=== PATIENT | male | born 1980 | race Caucasian/White ===

== ENCOUNTER 2023-07-11 11:18 | Emergency (ER) | payer BC, SELFPAY ==
[2023-07-11 12:05] VITALS: BP 132/81; PULSE 121; RESP 20; TEMP 36; O2SAT 96; BMI 31.5
--- NOTE | 2023-07-11 12:07 | ED_ITS ---
HPI - General Adult General Chief complaint: Upper Respiratory Symptoms Stated complaint: sore throat Time Seen by Provider: 07/11/23 12:07 Source: patient, RN notes reviewed and old records reviewed Mode of arrival: ambulatory Limitations: no limitations History of Present Illness HPI narrative: 43-year-old male presents for evaluation of a sore throat. Patient reports that he had flu-like symptoms about a week ago with fever and body aches he reports that that has improved, however over the last 4 days he has had a worsening sore throat and feels as though his tonsils are swollen he reports that it is painful to swallow and he but he is able to do so he also endorses a dry cough Related Data Previous Rx's Medication Instructions Recorded amoxicillin 875 mg-potassium 1 tab PO BID #14 tabs 07/11/23 clavulanate 125 mg tablet Allergies Allergy/AdvReac Type Severity Reaction Status Date / Time No Known Allergies Allergy Unverified 03/29/20 14:52 Review of Systems Constitutional: Constitutional: Denies chills and Denies fever(s) ENT: Reports sore throat Cardiovascular: Cardiovascular: Denies dyspnea Respiratory: Respiratory: Reports cough and Denies dyspnea Gastrointestinal: Gastrointestinal: Denies abdominal pain, Denies nausea and Denies vomiting Musculoskeletal: Musculoskeletal: Denies back pain Integumentary/Breasts: Skin/Breast: Denies rash PMFSH Social History Social History Unable to assess alcohol history related to: Unable to respond Physical Exam ED Vital Signs: Vital Signs - 24 hr 07/11/23 12:05 Temperature 96.8 F Pulse Rate 121 H Respiratory Rate 20 Blood Pressure 132/81 Pulse Oximetry 96 Oxygen Delivery Method Room Air BMI result Body Mass Index 31.5 Const General: healthy appearing, comfortable, no acute distress, alert and awake Nutritional Appearance: well nourished Orientation/consciousness: patient oriented x3 HENMT Other: erythematous oropharynx with bilateral tonsillar hypertrophy and exudates. No evidence of peritonsillar abscess Head: Yes normocephalic and Yes atraumatic Eyes Eyelids: Yes eyelids normal Conjunctivae: conjunctivae normal Sclerae: sclerae normal Corneas: corneas normal Pupils: Equal, round and reactive pupils present EOM: EOMs intact bilaterally Resp Effort & Inspection: normal respiratory effort, able to speak in complete sente nces, no audible wheezes and not labored Auscultation: clear to auscultation bilaterally GI Inspection: No distended Palpation (GI): Soft to palpation, not firm, nontender, no guarding and not rigid Skin General skin exam: elasticity normal Neuro General: patient oriented x3 Cranial nerves: Yes Equal, round and reactive pupils present and Yes Bilaterally intact EOM present Cognition (Neuro): normal cognition Extrem Other: Moving all extremities well without any obvious deformities Medical Decision Making Medical Decision Making MDM Narrative: 43-year-old male presents for evaluation of sore throat after having flu-like symptoms for a few days. Discussed with the patient and offered viral testing and strep testing the patient elected to be is treated empirically for exudative pharyngitis. Will treat with Augmentin. Differential Diagnosis Differential Diagnoses: The differential diagnosis associated with the presenta tion includes Upper respiratory infection Pharyngitis Strep pharyngitis Influenza COVID-19 Tests considered The following testing was considered but not selected: influenza swab, strep throat screening Discharge Plan Discharge Clinical Impression: Exudative pharyngitis Patient Disposition: Home, Self-Care Instructions: Pharyngitis (ED) Additional Instructions: Take the antibiotic twice daily for 7 days. you may use ibuprofen or Tylenol for pain you may also use saltwater gargles or [id number] throat sprays you should get a new toothbrush after you take the last dose of antibiotic follow-up with your primary doctor or return for new or worsening symptoms Prescriptions: New amoxicillin-pot clavulanate 875-125 mg tablet 1 tab PO BID Qty: 14 0RF
== END 2023-07-11 12:25 | disposition home or self-care (01) ==
LOC: HO.ED 12:13
PROVIDERS: Emergency Provider Emergency Medicine; PCP Internal Medicine
DX: J02.9 Acute pharyngitis, unspecified (principal); R50.9 Fever, unspecified; M79.10 Myalgia, unspecified site; R05.9 Cough, unspecified
CPT/HCPCS: 99283

== ENCOUNTER 2023-12-03 05:50 | Emergency (ER) | payer BC, SELFPAY ==
[2023-12-03 05:58] VITALS: BP 119/81; PULSE 71; RESP 18; TEMP 36.4; O2SAT 98; BMI 30.8
--- NOTE | 2023-12-03 06:36 | ED.GENADULT ---
HPI - General Adult General Chief complaint: Eye Problems Stated complaint: eye irritation Time Seen by Provider: 12/03/23 06:34 Source: patient Mode of arrival: ambulatory Limitations: no limitations History of Present Illness ED Provider: Margarita Rogers PA-C HPI narrative: Patient is a 43 year old assigned male at with no reported medical history presenting to the emergency department today with continued left eye swelling and pain after a conjunctivitis diagnosis. Patient states that 3 weeks ago, his nephew contracted pink eye and a few days later, he contracted it. Patient states that he was started on gentamycin drops and it initially seemed to get better but now it has returned and worsened. Patient states that he also has a sore throat. Patient denies any dizziness, lightheadedness, abdominal pain, nausea, vomiting, fever, chills, blurry vision, double vision, loss of vision, chest pain, difficulty breathing, shortness of breath, back pain, night sweats, pain with urination, increased urinary frequency, increased urinary urgency, blood in his urine or stool, syncope or a near syncopal episode, recent trauma or falls, bowel incontinence, bladder incontinence, bowel retention, bladder retention, or any other complaints at this time. Onset (ago): day(s) Location: eyes (left) Severity: mild Severity scale (1-10): 3 Quality: aching and dull Pain Consistency: constant Relieving factors: none Exacerbating factors: none Associated symptoms: other (sore throat) Treatments prior to arrival: other (gentamycin drops) Related Data Previous Rx's ?Medication ?Instructions ?Recorded amoxicillin 875 mg-potassium 1 tab PO BID #14 tabs 07/11/23 clavulanate 125 mg tablet doxycycline hyclate 100 mg tablet 100 mg PO BID 7 days #14 tabs 12/03/23 polymyxin B sulfate 10,000 1 drp ophthalmic (eye) QID 7 days 12/03/23 unit-trimethoprim 1 mg/mL eye drops #10 mL Allergies Allergy/AdvReac Type Severity Reaction Status Date / Time No Known Allergies Allergy Unverified 12/03/23 06:03 Review of Systems Constitutional: Constitutional: Reports no additional constitutional complaints, Denies chills, Denies fever(s) and Denies night sweats Eyes: Eyes: Reports no additional eye complaints, Denies blurry vision, Denies change in vision, Denies diplopia, Denies eye discharge, Denies loss of vision and Reports eye pain (left eye) ENT: Denies dizziness Comments: sore throat Cardiovascular: Cardiovascular: Reports no additional cardiovascular complaints, Denies chest pain, Denies lightheadedness, Denies Loss of Consciousness and Denies dyspnea Respiratory: Respiratory: Reports no additional respiratory complaints and Denies dyspnea Gastrointestinal: Gastrointestinal: Reports no additional gastrointestinal complaints, Denies abdominal pain, Denies melena, Denies hematochezia, Denies change in bowel habits and Denies change in stool character Genitourinary: Genitourinary: Reports no additional male genitourinary complaints, Denies hematuria, Denies oliguria, Denies difficulty urinating, Denies dysuria, Denies urinary frequency, Denies urinary hesitancy, Denies urinary incontinence and Denies urinary urgency Musculoskeletal: Musculoskeletal: Reports no additional musculoskeletal complaints, Denies numbness and Denies tingling Neurologic: Denies dizziness, Denies loss of vision, Denies numbness and Denies tingling Psychiatric: Psychiatric: Reports no additional psychiatric complaints Endocrine: Endocrine: Reports no additional endocrine complaints Hematologic/Lymphatic: Hematologic/Lymphatic: Reports no additional hematologic/lymphatic complaints Allergic/Immunologic: Allergic/Immunologic: Reports no additional allergic/immunologic complaints PMFSH Past Medical History Attestation statement: The following information was validated with the patient. Source: old records reviewed and nursing notes reviewed Social History Social History Unable to assess alcohol history related to: Unable to respond Smoked in Last 30 Days: No Advance Directives: No Do you have a plan to hurt others: No Plan Physical Exam ED Vital Signs: Vital Signs - 24 hr 12/03/23 05:58 12/03/23 08:27 Temperature 97.6 F 97.6 F Pulse Rate 71 71 Respiratory Rate 18 18 Blood Pressure 119/81 119/81 Pulse Oximetry 98 98 Oxygen Delivery Method Room Air Room Air BMI result Body Mass Index 30.8 Const General: cooperative, no acute distress, alert and awake Nutritional Appearance: well nourished Orientation/consciousness: patient oriented x3 Limitations: no limitations HENMT Head: Yes normal to inspection and Yes atraumatic Ears: hearing grossly normal bilaterally and external ears normal General nose exam: Normal external nose present, no nasal discharge noted and no epistaxis Face and sinus: Yes normal facial exam, No abrasion and No laceration Mouth: Normal oral and palatal mucosa present, no drooling and no muffled voice Throat: Yes abnormal tonsil (bilateral erythema / swelling) Eyes Periorbital: periorbital findings abnormal left periorbital swelling (minimal) Conjunctivae: conjunctivae normal Pupils: Equal, round and reactive pupils present EOM: EOMs intact bilaterally Neck Neck: Yes normal visual inspection, Yes full ROM and Yes no lymphadenopathy Chest Chest palpation & inspection: normal inspection of the chest Resp Effort & Inspection: normal respiratory effort and able to speak in complete sentences GI Inspection: Yes normal to inspection Neuro General: patient oriented x3 and moves all extremities Cranial nerves: Yes Equal, round and reactive pupils present Cognition (Neuro): normal cognition Motor exam (neuro): 5/5 motor strength present throughout Sensory Exam: Normal double simultaneous stimulation for sensation Coordination: [id number] test normal Extrem General: Yes normal to inspection, Yes full ROM and Yes capillary refill normal Psych Appearance: grossly normal Mental Status: mental status grossly normal Affect: normal affect Attitude: cooperative Thought process: Normal thought process present Thought content: Normal thought content present Insight: Good insight present (Psych) Medications Administered Discontinued Medications Generic Name Dose Route Start Last Admin Trade Name Freq PRN Reason Stop Dose Admin Dexamethasone Sodium Phosphate 10 mg 12/03/23 06:45 12/03/23 07:23 Dexamethasone Sod Phosphate 10 Mg/Ml Vial PO 12/03/23 06:46 10 mg ONCE ONE Administration Medical Decision Making Medical Decision Making [facility] Narrative: Patient is a 43 year old assigned male at with no reported medical history presenting to the emergency department today with left eye pain and throat pain. Patient's physical exam was as noted in the physical exam portion of this note. Patient's left periorbital area had mild swelling but no erythema or warmth. Patient's bilateral tonsils were erythematous and swollen but no exudates. Given the length of the patient's symptoms and failed first treatment, will treat with different regimen. Patient's strep, COVID-19, influenza, and RSV tests were negative. I explained my physical exam findings as well as all test results to the patient. I answered all questions asked by the patient. I stressed the importance of the patient taking his medication as prescribed. I stressed the importance of the patient following up with his primary care provider. I stressed the importance of the patient returning to the emergency department immediately if his symptoms were to worsen or if he were to develop any dizziness, shortness of breath, difficulty breathing, chest pain, blurry vision, loss of vision, nausea, vomiting, abdominal pain, fever, chills, back pain, or any other complaints. Patient verbalized agreement and understanding with this treatment plan and discharge. Differential Diagnosis Differential Diagnoses: The differential diagnosis associated with the presentation includes Periorbital cellulitis Tonsilitis Pharyngitis Viral illness Conjunctivitis Admission/Observation Consideration of admission/observation: Escalation of care including admission/observation considered Patient would have been admitted to the hospital had his work up had any findings where hospital admission was appropriate and his clinical presentation warranted hospital admission. Lab Data [facility] Lab Attestation statement: I reviewed the patient's lab results. My interpretation of these results are in the [facility] Rationale portion of this note. Labs: Lab Results 12/03/23 Range/Units 07:02 Influenza Type A (PCR) NEGATIVE (Negative) Influenza Type B (PCR) NEGATIVE (Negative) RSV RNA Qual (PCR) NEGATIVE (Negative) SARS-CoV-2 RNA (RT-PCR) NEGATIVE (Negative) S. pyogenes GrpA GIUSEPPE Negative (Negative) Prescription Management I considered prescription management with: Antibiotic (patient prescribed an antibiotic) Discharge Plan Discharge Clinical Impression: Periorbital cellulitis, Pharyngitis Patient Disposition: Home, Self-Care Instructions: Pharyngitis (ED), Periorbital Cellulitis in Adults (ED) Additional Instructions: Take your medication as prescribed. Follow up with your primary care provider. Return to the emergency department immediately if your symptoms worsen or if you develop any dizziness, shortness of breath, difficulty breathing, chest pain, blurry vision, loss of vision, nausea, vomiting, abdominal pain, fever, chills, back pain, or any other complaints. Prescriptions: New doxycycline hyclate 100 mg tablet 100 mg PO BID 7 Days Qty: 14 0RF polymyxin B sulf-trimethoprim 10,000 unit- 1 mg/mL drops 1 drp ophthalmic (eye) QID 7 Days Qty: 10 0RF No Action amoxicillin-pot clavulanate 875-125 mg tablet 1 tab PO BID Qty: 14 0RF Referrals: Yeni Elaine MD [Primary Care Provider] - Stand Alone Forms: Work/School Release Interventions: ED Discharge Assessment Last Done: 12/03/23 08:27 Discharge Date/Time: 12/03/23 08:28 Print Language: Chadian
[2023-12-03 07:17] LABS: IDNOW Serial# 08D9AD1C; Strep A Nucleic Acid Negative (Negative)
[2023-12-03] MEDS: dexAMETHasone sod phosphate 10 MG/ML VIAL PO (07:23)
[2023-12-03 07:53] LABS: Influenza A PCR NEGATIVE (Negative); Influenza B PCR NEGATIVE (Negative); Resp Syncy Virus RNA Qual PCR NEGATIVE (Negative); SARS COV2 PCR INHOUSE NEGATIVE (Negative)
[2023-12-03 08:27] VITALS: BP 119/81; PULSE 71; RESP 18; TEMP 36.4; O2SAT 98
== END 2023-12-03 08:28 | disposition home or self-care (01) ==
PROVIDERS: Physician Assistant Medical; Emergency Provider Emergency Medicine; PCP Internal Medicine
DX: L03.213 Periorbital cellulitis (principal); J02.9 Acute pharyngitis, unspecified; H57.12 Ocular pain, left eye; Z03.818 Encounter for observation for suspected exposure to other biological agents ruled out
CPT/HCPCS: 0241U; 87651; 99283; J1100

== ENCOUNTER 2023-12-07 07:28 | Emergency (ER) | payer BC, SELFPAY ==
--- NOTE | ~2023-12-07 | CT_ITS ---
EXAMINATION: CT ORBIT WITH CONTRAST CLINICAL INFORMATION: Right arm pressure and pain with swelling. COMPARISON: Possible comparison TECHNIQUE: CT scan of the orbits was obtained in the axial plane following the intravenous administration of 85 mL Omnipaque 350. The data was postprocessed at the geospatial information technologist workstation with generation of coronal and sagittal reformatted images. DLP: 173 mGy-cm. FINDINGS: The globes are symmetric. The lenses are in normal position. There is no proptosis. The periorbital structures appear normal. The extraocular muscles are symmetric and normal in appearance. The retrobulbar fat is maintained. The optic nerve sheath complexes appear unremarkable. The lacrimal apparatus is normal. There is no abnormal enhancement noted following intravenous contrast administration. The superior ophthalmic veins are normal in appearance. The cavernous sinuses, Meckel's caves, the optic chiasm and retrochiasmatic optic tracts are unremarkable. Views through the pituitary fossa are unremarkable. There is irregularity of the nasal bones bilaterally without soft tissue swelling, consistent with sequelae of prior trauma. CT/CT orbit BI w IV con IMPRESSION: There are sequelae of prior nasal bone fractures. Otherwise normal CT scan of the orbits with contrast.
[2023-12-07 07:39] VITALS: BP 122/74; PULSE 71; RESP 18; TEMP 36.2; O2SAT 99; BMI 31.5
[2023-12-07 08:19] VITALS: BP 132/88; PULSE 71; RESP 16; TEMP 36.3; O2SAT 98
--- NOTE | 2023-12-07 08:20 | ED_ITS ---
HPI - Eye Problem General Chief complaint: Eye Problems Stated complaint: R eye infection Time Seen by Provider: 12/07/23 07:43 Source: patient and RN notes reviewed Mode of arrival: ambulatory Limitations: no limitations History of Present Illness ED Provider: Jena Khan PA-C HPI Narrative: This is a 43-year-old male, with a hx of transverse myelitis in 2017, who presents emergency department for evaluation of ongoing eye problem. Patient reports that on November 11 he contracted conjunctivitis from his nephew. He was started on gentamicin drops and felt as though his symptoms did improve however worsened and was seen here on December 03, 2023 where he was started on doxycycline as well as Bactrim eyedrops for treatment of periorbital cellulitis. He states initially he felt as though his symptoms have improved however states that last night he has had right eye pressure, pain and increased swelling around his right eye. He denies any visual changes. Patient reports that he also has intermittent episodes of feeling as though there is grit in his in his left eye at bedtime. No recent injury to his eye. Slight paian with movement of his eye. When asked where his pain it, it is on the right upper outer eyelid. MD chief complaint: eye pain and eye redness Related Data Previous Rx's ?Medication ?Instructions ?Recorded amoxicillin 875 mg-potassium 1 tab PO BID #14 tabs 07/11/23 clavulanate 125 mg tablet doxycycline hyclate 100 mg tablet 100 mg PO BID 7 days #14 tabs 12/03/23 polymyxin B sulfate 10,000 1 drp ophthalmic (eye) QID 7 days 12/03/23 unit-trimethoprim 1 mg/mL eye drops #10 mL amoxicillin 875 mg-potassium 1 tab PO BID 7 days #14 tabs 12/07/23 clavulanate 125 mg tablet cetirizine 10 mg capsule (All Day 10 mg PO DAILY #30 caps 12/07/23 Allergy (cetirizine)) clindamycin HCl 300 mg capsule 300 mg PO TID 5 days #15 caps 12/07/23 erythromycin 5 mg/gram (0.5 %) eye 0.5 inch ophthalmic (eye) QID #3.5 12/07/23 ointment grams prednisone 20 mg tablet 40 mg (2 x 20 mg) PO DAILY 5 days 12/07/23 #10 tabs Allergies Allergy/AdvReac Type Severity Reaction Status Date / Time No Known Allergies Allergy Verified 12/07/23 07:41 Review of Systems 2 Review of Systems: Yes all other systems are reviewed and are negative Constitutional: Constitutional: Reports as per [facility] Social History Social History Unable to assess alcohol history related to: Unable to respond Advance Directives: No Advance Directives Information Provided: Yes Physical Exam 2 Vital Signs: Vital Signs: Last Vital Signs Temp 98.2 F 12/07/23 12:40 Pulse 60 12/07/23 12:40 Resp 16 12/07/23 12:40 BP 132/76 12/07/23 12:40 Pulse Ox 99 12/07/23 12:40 O2 Del Method Room Air 12/07/23 12:40 BMI result Body Mass Index 31.5 Const: General: cooperative, comfortable and no acute distress O rientation/consciousness: patient oriented x3 Limitations: no limitations HEENT: Head: Yes normal to inspection, Yes normocephalic and Yes atraumatic Ears: hearing grossly normal bilaterally General nose exam: Normal external nose present Face and sinus: Yes normal facial exam Mouth: Normal oral and palatal mucosa present, oropharynx normal and moist mucous membranes Throat: Yes posterior oropharynx normal Eyes: Other: Right eye with mild periorbital edema, more pronounced in the right upper eyelid. Conjunctiva is noninjected. Pupils are equal and react normally to light. No stye seen with lid eversion. No flouroscein uptake, Eye pressure: OR - 17mmHg, OD: 20mmHg General: appearance normal, both eyes and all related structures E yelids: Yes eyelids normal Conjunctivae: conjunctivae normal Sclerae: s clerae normal Pupils: Equal, round and reactive pupils present EOM: EOMs intact bilaterally Neck: Neck: Yes normal visual inspection, Yes full ROM and Yes no lymphadenopathy Lymphatic: no lymphadenopathy noted Chest: Chest palpation & inspection: normal inspection of the chest Resp: Effort & Inspection: normal respiratory effort and able to speak in complete sentences Auscultation: clear to auscultation bilaterally, no crackles, no rales, no rhonchi and no wheezes Cardio: Rate: regular rate Rhythm: regular rhythm Heart sounds: S1 normal heart sound present and S2 normal heart sound present GI: Inspection: Yes normal to inspection Skin: General skin exam: no rashes or lesions noted Trauma: no lacerations or abrasions Wounds: no wounds Neuro: General: patient oriented x3 and moves all extremities Cranial nerves: Yes Equal, round and reactive pupils present Extrem: General: Yes normal to inspection Right upper extremity: normal to inspection Left upper extremity: normal to inspection Right lower extremity: normal to inspection Left lower extremity: normal to inspection Course Reevaluation(s) Reevaluation #1: Labs returned, no leukocytosis, slight microcytic anemia noted with an H&H of 13.8/41, chemistry within normal limits. Orbital CT revealing prior nasal bone fractures, but no other abnormalities. It is unclear whether patient's symptoms are allergic or bacterial, however CT, blood work and workup today reassuring. Switched antibiotic for double coverage to cover for early preseptal cellulitis, with erythromycin ointment. Also rx'd prednisone and cetrizine. I advised pt to f/u with ophthalmology for f/u and management. Given strict return precautions. He understands and agrees with plan. Stable for discharge Time: 12:11 Medications Administered Discontinued Medications Generic Name Dose Route Start Last Admin Trade Name Steffenq PRN Reason Stop Dose Admin Fluorescein Sodium 1 strip 12/07/23 08:20 12/07/23 08:27 Fluorescein Sodium Strip EYE-BOTH 12/07/23 08:21 1 strip ONCE ONE Administration Iohexol 100 ml 12/07/23 10:41 12/07/23 10:41 Iohexol 350 Mg/Ml 100 Ml Infus..Btl IV 12/07/23 10:42 85 ml ONCE ONE Administration Tetracaine HCl 1 drop 12/07/23 08:20 12/07/23 08:27 Tetracaine Hcl/Pf 0.5% Oph Glory 4 Ml Drops EYE-BOTH 12/07/23 08:21 1 drop ONCE ONE Administration Medical Decision Making Medical Decision Making MDM Narrative: This is a 89-m[age]-male, with hx of transverse myelitis in 2017, who presents to the ER with complaints of right eyelid swelling, right eye pain. This has been ongoing for the last month with failure of getamycin eyedrops, doxycycline. On examination, pt with no profound orbital edema noted. EOMI, PERRL; Pt with TTP over the right upper outer lid which is nonerythematous nonedemataous.He is reporting prerssue like pain behind his right eye. DDX orbital cellulitis, periorbital cellulitis, acute glaucomaa, iritis, conjunctivitis globe rupture - unlikely. Given ongoing pressure in his right eye, labs, fluroscein exam, eye pressure, visual acuity and CT orbits ordered. Plan: Differential Diagnosis Differential Diagnoses: The differential diagnosis associated with the presentation includes see above Admission/Observation Consideration of admission/observation: Escalation of care including admission/observation considered Escalation of care including admission/observation considered however given workup today not warranted at this time. Lab Data MDM Lab Attestation statement: I reviewed the patient's lab results. Labs returned, no leukocytosis, slight microcytic anemia noted with an H&H of 13.8/41, chemistry within normal limits. 12/07/23 09:17 12/07/23 09:17 Labs: Lab Results 12/07/23 Range/Units 09:17 WBC 5.7 (4.8-10.8) X10*3/uL RBC 5.35 (4.60-5.80) X10*6/uL Hgb 13.8 L (14.0-18.0) g/dl Hct 41.3 L (42.0-52.0) % MCV 77.2 L (80.0-98.0) fL MCH 25.8 L (27.0-33.0) pg MCHC 33.4 (31.0-36.0) g/dl RDW 14.0 (11.0-16.0) % Plt Count 197 (160-400) X10*3/uL MPV 10.6 (9.4-12.4) fL Immature Gran % (Auto) 0.2 (0.0-0.4) % Neut % (Auto) 64.6 (45-73) % Lymph % (Auto) 24.2 (20-40) % [place] % (Auto) 8.5 (2-11) % Eos % (Auto) 1.6 (0-4) % Baso % (Auto) 0.9 (0-2) % Lymph # (Auto) 1.4 (1.2-4.9) X10*3/uL [place] # (Auto) 0.5 (0.1-1.2) X10*3/uL Eos # (Auto) 0.1 (0.0-0.4) X10*3/uL Baso # (Auto) 0.1 (0.0-0.2) X10*3/uL Abs Immat Gran (auto) 0.01 (0.00-0.03) X10*3/uL Absolute Neuts (auto) 3.7 (2.0-8.3) x10*3/uL Absolute Nucleated RBC 0.000 (0.0-0.012) X10*3/uL Nucleated RBC % (auto) 0.0 (0.0-0.2) /100WBC ESR 14 (0-15) MM/HR Sodium 139 (135-145) mmol/L Potassium 4.1 (3.3-5.1) mmol/L Chloride 105 (96-108) mmol/L Carbon Dioxide 23 (22-29) mmol/L Anion Gap 15 (12-20) BUN 17 H (9-16) mg/dL Creatinine 0.81 (0.5-1.4) mg/dL Estim Creat Clear Calc 159.1 Estimated GFR > 60 Random Glucose 104 (60-115) mg/dL Calcium 9.8 (8.4-10.2) mg/dL Total Bilirubin 0.4 (0.0-1.0) mg/dL Direct Bilirubin 0.1 (0.0-0.5) mg/dL AST 25 (5-37) U/L ALT 43 H (0-40) U/L Alkaline Phosphatase 90 (39-117) U/L C-Reactive Protein 0.36 (< or = 0.50) mg/dL Total Protein 7.6 (6.5-8.0) g/dL Albumin 4.5 (3.5-5.0) g/dL Radiology Impression Discussion of test interpretation with radiology: I have reviewed the radiologist's reading. Radiologist Impression: CT/CT orbit BI w IV con IMPRESSION: There are sequelae of prior nasal bone fractures. Otherwise normal CT scan of the orbits with contrast. External Record Review External record reviewed: Inpatient record, Office record, Outpatient record, Prior outpatient labs, Prior outpatient radiology, Primary care record and Outside ED record Discharge Plan Discharge Clinical Impression: Periorbital cellulitis, Edema of orbit Patient Disposition: Home, Self-Care Instructions: Periorbital Cellulitis in Adults (ED) Additional Instructions: You were seen in the emergency department due to ongoing eye problems. Your labs were obtained in the department and they were reassuring. Your CT scan of your orbits were unremarkable. Your workup today was reassuring. It is unclear what is causing you to have the symptoms however we are treating you for both a bacterial as well as allergic. Please discontinue using doxycycline as well as your prescribed eyedrops. Take prednisone as directed prescribed. This will help with inflammation. Take antibiotics as directed. Finish the entire course even if your feeling better. Use topical antibiotic ointment as directed. I am also prescribing you seasonal allergy medications to help with your symptoms. Please follow-up with the eye physician, see referral for information as well as phone number. I am also referring you to an allergy specialists as your symptoms may be allergic. Follow-up with your primary care physician regarding this visit, call to make an appointment. If any new or worsening symptoms occur including but not limited to severe eye pain, loss of vision, high fevers, severe headache, chest pain, please seek emergent care. Prescriptions: New prednisone 20 mg tablet 40 mg PO DAILY 5 Days Qty: 10 0RF All Day Allergy (cetirizine) 10 mg capsule 10 mg PO DAILY Qty: 30 0RF erythromycin 5 mg/gram (0.5 %) ointment 0.5 inch ophthalmic (eye) QID Qty: 3.5 0RF amoxicillin-pot clavulanate 875-125 mg tablet 1 tab PO BID 7 Days Qty: 14 0RF clindamycin HCl 300 mg capsule 300 mg PO TID 5 Days Qty: 15 0RF No Action amoxicillin-pot clavulanate 875-125 mg tablet 1 tab PO BID Qty: 14 0RF doxycycline hyclate 100 mg tablet 100 mg PO BID 7 Days Qty: 14 0RF polymyxin B sulf-trimethoprim 10,000 unit- 1 mg/mL drops 1 drp ophthalmic (eye) QID 7 Days Qty: 10 0RF Referrals: Karri Shearer [Physician] - Interventions: ED Discharge Assessment Last Done: 12/07/23 12:40 Discharge Date/Time: 12/07/23 12:41 Print Language: Thai
[2023-12-07] MEDS: Fluorescein Sodium STRIP 1 STRIP EYE-BOTH (08:27)
[2023-12-07] MEDS: Tetracaine HCl/PF 0.5% Oph Sol 4 ML DROPS 1 DROP EYE-BOTH (08:27)
[2023-12-07 09:23] LABS: MANUAL DIFF FLAG NO
[2023-12-07 09:39] LABS: Basophils Absolute Auto 0.1 X10*3/uL (0.0-0.2); Basophils Percent Auto 0.9 % (0-2); Eosinophils Absolute Auto 0.1 X10*3/uL (0.0-0.4); Eosinophils Percent Auto 1.6 % (0-4); Hematocrit 41.3 % (42.0-52.0); Hemoglobin 13.8 g/dl (14.0-18.0); Imm Gran Abs Auto 0.01 X10*3/uL (0.00-0.03); Imm Gran Pct Auto 0.2 % (0.0-0.4); Lymphocytes Absolute Auto 1.4 X10*3/uL (1.2-4.9); Lymphocytes Percent Auto 24.2 % (20-40); Mean Corpuscular HGB Conc 33.4 g/dl (31.0-36.0); Mean Corpuscular Hemoglobin 25.8 pg (27.0-33.0); Mean Corpuscular Volume 77.2 fL (80.0-98.0); Mean Platelet Volume 10.6 fL (9.4-12.4); Monocytes Absolute Auto 0.5 X10*3/uL (0.1-1.2); Monocytes Percent Auto 8.5 % (2-11); Neutrophils Absolute Auto 3.7 x10*3/uL (2.0-8.3); Neutrophils Percent Auto 64.6 % (45-73); Platelet Count 197 X10*3/uL (160-400); Red Blood Count 5.35 X10*6/uL (4.60-5.80); White Blood Count 5.7 X10*3/uL (4.8-10.8)
[2023-12-07 09:59] LABS: Alanine Aminotransferase 43 U/L (0-40); Albumin Level 4.5 g/dL (3.5-5.0); Alkaline Phosphatase 90 U/L (39-117); Anion Gap 15 (12-20); Aspartate Amino Transferase 25 U/L (5-37); Bilirubin Direct 0.1 mg/dL (0.0-0.5); Bilirubin Total 0.4 mg/dL (0.0-1.0); Blood Urea Nitrogen 17 mg/dL (9-16); C Reactive Protein 0.36 mg/dL (< or = 0.50); Calcium 9.8 mg/dL (8.4-10.2); Carbon Dioxide 23 mmol/L (22-29); Chloride 105 mmol/L (96-108); Creatinine Clr Calc Pharmacy 159.1; Estimated Glomerular Filt Rate > 60; Glucose Random 104 mg/dL (60-115); Potassium 4.1 mmol/L (3.3-5.1); Sodium 139 mmol/L (135-145); Total Protein 7.6 g/dL (6.5-8.0)
[2023-12-07 10:00] VITALS: BP 132/76; PULSE 60; TEMP 36.8; O2SAT 99
[2023-12-07] MEDS: iohexoL 350 MG/ML 100 ML INFUS..BTL IV (10:41)
[2023-12-07 11:40] LABS: Erythrocyte Sedimentation Rate 14 MM/HR (0-15)
--- NOTE | 2023-12-07 12:02 | PC.NURSE ---
NEGATIVE CT SCAN . PA-C INTO REVIEW RESULTS AND DISCHARGE PLAN OF CARE.
[2023-12-07 12:40] VITALS: BP 132/76; PULSE 60; RESP 16; TEMP 36.8; O2SAT 99
== END 2023-12-07 12:41 | disposition home or self-care (01) ==
PROVIDERS: Physician Assistant Medical; Emergency Provider Student in an Organized Health Care Education/Training Program; PCP Internal Medicine
DX: L03.213 Periorbital cellulitis (principal); H05.221 Edema of right orbit
CPT/HCPCS: 36415; 70481; 80048; 80076; 85025; 85652; 86140; 87040; 99284; Q9967

== ENCOUNTER 2024-09-20 16:24 | Inpatient (IN) | payer BC, SELFPAY ==
--- NOTE | ~2024-09-20 | CT_ITS ---
CLINICAL HISTORY: [facility] CT angiography abdomen and pelvis with contrast. 3-D post processing. Comparison: None Findings: There is no active extravasation of contrast into the stomach or bowel lumen. No active extravasation of contrast otherwise. Normal appearance of the stomach, small bowel, and colon. Solid organs within normal limits. Gallbladder and bile ducts normal. No aortic aneurysm. Urinary bladder and prostate are unremarkable. Bones intact. IMPRESSION: No acute findings. No evidence of active gastrointestinal bleeding or acute inflammatory process involving the GI tract. This document has been electronically signed by: Idris Arteaga MD on 09/20/2024 22:50:33
[2024-09-20 16:27] VITALS: BP 143/94; PULSE 95; RESP 18; TEMP 36.5; O2SAT 100; BMI 31.1
--- NOTE | 2024-09-20 16:27 | ED.GENADULT ---
HPI - General Adult General Chief complaint: GI Bleed Stated complaint: Rectal bleeding, after fall 7 days ago Time Seen by Provider: 09/20/24 20:32 Source: patient Limitations: no limitations History of Present Illness ED Provider: Kari Armendariz PA-C HPI narrative: 44-year-old male presents for evaluation of rectal bleeding. He reports a history of both internal and external hemorrhoids. He reports a syncopal episode 2 days ago, and woke up with blood on his leg from his rectum. He continues to have bright red blood with bowel movements. , he had an episode of prolonged bleeding following a bowel movement that lasted 30 minutes. Patient panicked and came to the emergency room. Associated dizziness and nausea. Related Data Previous Rx's ?Medication ?Instructions ?Recorded amoxicillin 875 mg-potassium 1 tab PO BID #14 tabs 07/11/23 clavulanate 125 mg tablet doxycycline hyclate 100 mg tablet 100 mg PO BID 7 days #14 tabs 12/03/23 polymyxin B sulfate 10,000 1 drp ophthalmic (eye) QID 7 days 12/03/23 unit-trimethoprim 1 mg/mL eye drops #10 mL amoxicillin 875 mg-potassium 1 tab PO BID 7 days #14 tabs 12/07/23 clavulanate 125 mg tablet cetirizine 10 mg capsule (All Day 10 mg PO DAILY #30 caps 12/07/23 Allergy (cetirizine)) clindamycin HCl 300 mg capsule 300 mg PO TID 5 days #15 caps 12/07/23 erythromycin 5 mg/gram (0.5 %) eye 0.5 inch ophthalmic (eye) QID #3.5 12/07/23 ointment grams prednisone 20 mg tablet 40 mg (2 x 20 mg) PO DAILY 5 days 12/07/23 #10 tabs Allergies Allergy/AdvReac Type Severity Reaction Status Date / Time No Known Allergies Allergy Verified 09/20/24 16:30 Review of Systems Review of Systems: Yes all other systems are reviewed and are negative Constitutional: Constitutional: Denies fatigue and Denies fever(s) ENT: Reports dizziness Cardiovascular: Cardiovascular: Denies chest pain, Reports syncope and Denies dyspnea Respiratory: Respiratory: Denies dyspnea Gastrointestinal: Gastrointestinal: Denies abdominal pain, Reports hematochezia, Reports nausea and Denies vomiting Neurologic: Reports dizziness and Reports syncope Endocrine: Endocrine: Denies fatigue PMFSH Past Medical History Attestation statement: The following information was validated with the patient. Social History Social History Unable to assess alcohol history related to: Unknown Smoked in Last 30 Days: No Use of substances other than those prescribed or required for medical reasons: Unknown Advance Directives: No Advance Directives Information Provided: No Physical Exam ED Vital Signs: Vital Signs - 24 hr 09/20/24 16:27 09/20/24 20:00 09/20/24 21:00 Temperature 97.7 F 98.4 F Pulse Rate 95 80 80 Respiratory Rate 18 18 Blood Pressure 143/94 H 133/80 125/81 Pulse Oximetry 100 95 Oxygen Delivery Method Room Air Room Air 09/20/24 21:02 09/20/24 21:03 09/21/24 00:00 Temperature 98.5 F Pulse Rate 103 H 101 H 75 Respiratory Rate 18 Blood Pressure 139/103 H 112/78 145/92 H Pulse Oximetry 97 Oxygen Delivery Method Room Air BMI result Body Mass Index 31.1 Const Other: Alert Orientation/consciousness: patient oriented x3 Resp Effort & Inspection: normal respiratory effort Cardio Other: Normal peripheral perfusion Skin Other: Warm dry no rash Neuro General: patient oriented x3, gait normal, no focal motor deficits and CN's II-XI intact bilaterally Psych Other: Cooperative Course Course Course Narrative: RME, this is a rapid medical exam performed by Tyrone Lyons please refer to primary provider for complete H&P- 44-year-old male presents for evaluation of rectal bleeding. He reports a history of both internal and external hemorrhoids. He reports having had COVID last week. He reports a syncopal episode last Thursday and woke up with blood on his pain and leg. He has a bright red blood with bowel movements. Medications Administered Discontinued Medications Generic Name Dose Route Start Last Admin Trade Name Freq PRN Reason Stop Dose Admin Sodium Chloride 1,000 mls @ 999 mls/hr 09/20/24 22:15 09/20/24 23:17 Ns IV 09/20/24 23:15 Infused .Q1H1M SHREYAS Infusion Iohexol 85 ml 09/20/24 21:55 09/20/24 21:56 Iohexol 350 Mg/Ml 100 Ml Infus..Btl IV 09/20/24 21:56 85 ml ONCE ONE Administration Lidocaine/Epinephrine/Tetracaine 3 ml 09/20/24 21:29 09/20/24 22:03 Lidocaine/Racepinep/Tetracaine 3 Ml Gel.Pf.Tegan TOPICAL 09/20/24 21:30 3 ml ONCE ONE Administration Medical Decision Making Medical Decision Making MDM Narrative: 44-year-old male presents for evaluation of rectal bleeding. He reports a history of both internal and external hemorrhoids. He reports a syncopal episode 2 days ago, and woke up with blood on his leg from his rectum. He continues to have bright red blood with bowel movements. , he had an episode of prolonged bleeding following a bowel movement that lasted 30 minutes. Patient panicked and came to the emergency room. Associated dizziness and nausea. Problem: Known hemorrhoids, lower GI bleed History: Per patient I have considered the following differential diagnoses: Lower GI bleed, diverticulosis, diverticulitis, hemorrhoids, polyp Plan: The patient was symptomatic with his lower GI bleeding, we will be obtaining a CT scan. We will repeat his H and H to see if there has been a drop. I have independently reviewed the following tests: Labs: No leukocytosis, initial H&H 13 and 39 respectively, repeat H&H 11.9 and 35.6, no electrolyte abnormality, CT abdomen and pelvis:44-year-old male presents for evaluation of rectal bleeding. He reports a history of both internal and external hemorrhoids. He reports a syncopal episode 2 days ago, and woke up with blood on his leg from his rectum. He continues to have bright red blood with bowel movements. , he had an episode of prolonged bleeding following a bowel movement that lasted 30 minutes. Patient panicked and came to the emergency room. Associated dizziness and nausea. Lab Data 09/20/24 22:16 09/20/24 16:35 Labs: Lab Results 09/20/24 09/20/24 Range/Units 16:35 22:16 WBC 3.0 L (4.8-10.8) X10*3/uL RBC 5.19 (4.60-5.80) X10*6/uL Hgb 13.0 L 11.9 L (14.0-18.0) g/dl Hct 39.1 L 35.6 L (42.0-52.0) % MCV 75.3 L (80.0-98.0) fL MCH 25.0 L (27.0-33.0) pg MCHC 33.2 (31.0-36.0) g/dl RDW 14.6 (11.0-16.0) % Plt Count 179 (160-400) X10*3/uL MPV 10.3 (9.4-12.4) fL Immature Gran % (Auto) 0.3 (0.0-0.4) % Neut % (Auto) 36.1 L (45-73) % Lymph % (Auto) 51.2 H (20-40) % [place] % (Auto) 10.8 (2-11) % Eos % (Auto) 1.3 (0-4) % Baso % (Auto) 0.3 (0-2) % Lymph # (Auto) 1.5 (1.2-4.9) X10*3/uL [place] # (Auto) 0.3 (0.1-1.2) X10*3/uL Eos # (Auto) 0.0 (0.0-0.4) X10*3/uL Baso # (Auto) 0.0 (0.0-0.2) X10*3/uL Abs Immat Gran (auto) 0.01 (0.00-0.03) X10*3/uL Absolute Neuts (auto) 1.1 L (2.0-8.3) x10*3/uL Absolute Nucleated RBC 0.000 (0.0-0.012) X10*3/uL Nucleated RBC % (auto) 0.0 (0.0-0.2) /100WBC Sodium 140 (135-145) mmol/L Potassium 3.8 (3.3-5.1) mmol/L Chloride 104 (96-108) mmol/L Carbon Dioxide 26 (22-29) mmol/L Anion Gap 14 (12-20) BUN 18 H (9-16) mg/dL Creatinine 1.04 (0.5-1.4) mg/dL Estim Creat Clear Calc 122.0 Estimated GFR > 60 Random Glucose 93 (60-115) mg/dL Calcium 9.7 (8.4-10.2) mg/dL Total Bilirubin 0.4 (0.0-1.0) mg/dL AST 87 H (5-37) U/L ALT 134 H (0-40) U/L Alkaline Phosphatase 90 (39-117) U/L Total Protein 8.4 H (6.5-8.0) g/dL Albumin 4.6 (3.5-5.0) g/dL Discharge Plan Discharge Clinical Impression: Hemorrhoids, Acute lower GI bleeding Patient Disposition: Admitted As Inpatient Print Language: Tamazight
[2024-09-20 16:38] LABS: MANUAL DIFF FLAG NO
[2024-09-20 16:39] LABS: Basophils Percent Auto 0.3 % (0-2); Eosinophils Percent Auto 1.3 % (0-4); Hematocrit 39.1 % (42.0-52.0); Imm Gran Abs Auto 0.01 X10*3/uL (0.00-0.03); Imm Gran Pct Auto 0.3 % (0.0-0.4); Lymphocytes Absolute Auto 1.5 X10*3/uL (1.2-4.9); Lymphocytes Percent Auto 51.2 % (20-40); Mean Corpuscular HGB Conc 33.2 g/dl (31.0-36.0); Mean Corpuscular Volume 75.3 fL (80.0-98.0); Mean Platelet Volume 10.3 fL (9.4-12.4); Monocytes Absolute Auto 0.3 X10*3/uL (0.1-1.2); Monocytes Percent Auto 10.8 % (2-11); Neutrophils Absolute Auto 1.1 x10*3/uL (2.0-8.3); Neutrophils Percent Auto 36.1 % (45-73); Platelet Count 179 X10*3/uL (160-400); Red Blood Count 5.19 X10*6/uL (4.60-5.80); Red Cell Distribution Width 14.6 % (11.0-16.0)
[2024-09-20 17:13] LABS: Alanine Aminotransferase 134 U/L (0-40); Albumin Level 4.6 g/dL (3.5-5.0); Alkaline Phosphatase 90 U/L (39-117); Anion Gap 14 (12-20); Aspartate Amino Transferase 87 U/L (5-37); Bilirubin Total 0.4 mg/dL (0.0-1.0); Blood Urea Nitrogen 18 mg/dL (9-16); Calcium 9.7 mg/dL (8.4-10.2); Carbon Dioxide 26 mmol/L (22-29); Chloride 104 mmol/L (96-108); Estimated Glomerular Filt Rate > 60; Glucose Random 93 mg/dL (60-115); Potassium 3.8 mmol/L (3.3-5.1); Sodium 140 mmol/L (135-145); Total Protein 8.4 g/dL (6.5-8.0)
[2024-09-20 20:00] VITALS: BP 133/80; PULSE 80; RESP 18; TEMP 36.9; O2SAT 95
[2024-09-20 21:00] VITALS: BP 125/81; PULSE 80
[2024-09-20 21:02] VITALS: BP 139/103; PULSE 103
[2024-09-20 21:03] VITALS: BP 112/78; PULSE 101
--- NOTE | 2024-09-20 21:42 | PC.NURSE ---
Pt a&ox4, no signs of distress. Pt ambulates with a steady gait. Pts mother at bedside Pt with CT Plan of care ongoing.
[2024-09-20] MEDS: iohexoL 350 MG/ML 100 ML INFUS..BTL 85 ML IV (21:56)
[2024-09-20] MEDS: Lidocaine/Racepinep/Tetracaine 3 ML GEL.PF.APP TOPICAL (22:03)
[2024-09-20] MEDS: 0.9 % Sodium Chloride 1,000 ML 999 ML IV (22:09)
[2024-09-20 22:25] LABS: Hematocrit 35.6 % (42.0-52.0); Hemoglobin 11.9 g/dl (14.0-18.0)
[2024-09-21] VITALS: BP 145/92; PULSE 75; RESP 18; TEMP 36.9; O2SAT 97
--- NOTE | 2024-09-21 00:52 | P.HPHOSP_ITS ---
History of Present Illness Date of Service: 09/21/24 Attending physician on admission: Fabio Peacock Chief Complaint: rectal bleeding pt is a 44 yo male with a pmhx significant for thalassemia minor and transverse myelitis with continued r hand deifict, who presented to the ED due to rectal bleeding. he reports this has been going on for a while now and has been increasing in severity. he had a recent syncopal episode while having COVID and woke in the middle of the night to get a drink of water. he opened the fridge and syncopized. states he woke with blood dripping down his leg from his hemorrhoids. he has bleeding with every BM, and today had an episode that lasted 30 minutes of heavy bleeding. he denies hard stool or diarrhea. no bloody stool. he has a hx of hemorrhoids requiring surgery in 2015 and 2019, and has had 2 colonoscopies that were normal, but reports his father has had colon polyps. he also reports that he is concerned that he has not been following an appropriate diet for having thalassemia minor and feels that he is consuming too much iron. no fhx of hemachromatosis. no heavy etoh or fhx of liver disease. Review of Systems 2 Constitutional: Constitutional: Denies body ache(s), Denies chills, Denies fatigue, Denies fever(s) and Denies headache(s) Eyes: Eyes: Denies change in vision and Denies photophobia ENT: Denies headache(s), Denies nasal congestion, Denies nasal discharge and Denies sore throat Cardiovascular: Cardiovascular: Denies chest pain, Denies rapid heart rate, Denies leg edema, Denies lightheadedness and Denies dyspnea Respiratory: Respiratory: Denies chest congestion, Denies cough, Denies dyspnea and Denies wheezing Gastrointestinal: Gastrointestinal: Reports as per HPI, Denies diarrhea, Denies nausea and Denies vomiting Genitourinary: Genitourinary: Denies difficulty urinating, Denies dysuria and Denies urinary urgency Musculoskeletal: Musculoskeletal: Denies back pain Integumentary/Breasts: Skin/Breast: Denies rash Neurologic: Denies confusion and Denies headache(s) Psychiatric: Psychiatric: Denies confusion Endocrine: Endocrine: Denies fatigue Hematologic/Lymphatic: Hematologic/Lymphatic: Denies easy bleeding and Denies easy bruising Allergic/Immunologic: Allergic/Immunologic: Denies wheezing PMFSH Medical History (Updated 09/21/24 @ 01:06 by Francia Donaldson PA-C) Obesity (BMI 30.0-34.9) Thalassemia minor Functional capacity: independent ambulation Social History Unable to assess alcohol history related to: Unknown Smoked in Last 30 Days: No Use of substances other than those prescribed or required for medical reasons: Unknown Advance Directives: No Advance Directives Information Provided: No Narrative: no smoking, eoth or drug use Meds Allergies Allergy/AdvReac Type Severity Reaction Status Date / Time No Known Allergies Allergy Verified 09/20/24 16:30 Physical Exam 2 Vital Signs and Narrative: Vital Signs: Last Vital Signs Temp 98.5 F 09/21/24 00:00 Pulse 75 09/21/24 00:00 Resp 18 09/21/24 00:00 BP 145/92 H 09/21/24 00:00 Pulse Ox 97 09/21/24 00:00 O2 Del Method Room Air 09/21/24 00:00 BMI result Body Mass Index 31.1 General: AOx3, no acute distress Resp: CTA bilaterally CVS: S1, S2, RRR GI: +BS, NT, no distention Skin: Warm, dry Neuro: Cranial nerves II-XII grossly intact bilaterally. Motor grossly intact bilaterally Extremities: No LE edema Psych: Appropriate affect Const: General: No confusion Orientation/consciousness: No confusion Eyes: Direct Ophthalmoscopy: No photophobia Neuro: General: No confusion Results Labs 09/20/24 22:16 09/20/24 16:35 Labs: Laboratory Results - last 24 hr 09/20/24 16:35 MCV 75.3 L MCH 25.0 L MCHC 33.2 RDW 14.6 Plt Count 179 MPV 10.3 Immature Gran % (Auto) 0.3 Neut % (Auto) 36.1 L Lymph % (Auto) 51.2 H [place] % (Auto) 10.8 Eos % (Auto) 1.3 Baso % (Auto) 0.3 Lymph # (Auto) 1.5 [place] # (Auto) 0.3 Eos # (Auto) 0.0 Baso # (Auto) 0.0 Abs Immat Gran (auto) 0.01 Absolute Neuts (auto) 1.1 L Absolute Nucleated RBC 0.000 Nucleated RBC % (auto) 0.0 Anion Gap 14 Estim Creat Clear Calc 122.0 Estimated GFR > 60 Random Glucose 93 Calcium 9.7 Total Bilirubin 0.4 AST 87 H ALT 134 H Alkaline Phosphatase 90 Total Protein 8.4 H Albumin 4.6 Assessment and Plan (1) Acute lower GI bleeding: Status: Acute (2) Hemorrhoids: Status: Acute (3) Elevated LFTs: Status: Acute (4) Obesity (BMI 30.0-34.9): Status: Acute Plan pt is a 44 yo male with a pmhx significant for thalassemia minor and transverse myelitis with continued r hand deifict, who presented to the ED due to rectal bleeding. pt has known internal and external hemohrroids. bleeding has increased in severity with an episode of 30 mins of heavy bleeding, which prompted him to come here. acute lower GI bleed, likely hemorrhoidal - H+H 13/39 to 11.9/31.6 on repeat - bleed scan negative - no need for blood transfusion at this time - GI consult - NPO - moniotr CBC elevated LFTs - AST 87, ALT 134 - likely fatty liver with lack of etoh and BMI - iron studies as pt is concerned for iron deposition - hepatitis panel - GI consult as above obesity - BMI 31.1 - weight loss encouraged full code VTE prophy: pneumoboots due to bleeding Pt with acute lower GI bleed requiring admission for GI consultation and monitoring for at least 2 midnights stay. Quality Stroke Does the patient have a stroke diagnosis?: No VTE Prior VTE?: No VTE Risk Level:: Medical - moderate - high VTE Device Contraindication: N/A - Device Ordered VTE Drug Contraindication: Treatment Not Indicated
[2024-09-21 01:30] LABS: Iron 43 mcg/dL (45-160); Percent Iron Saturation 14 % (15-50); Total Iron Binding Capacity 313 mcg/dL (228-428); Unsaturated Iron Binding 270 ug/dL
[2024-09-21 05:22] LABS: Hematocrit 32.8 % (42.0-52.0); Hemoglobin 10.7 g/dl (14.0-18.0); Mean Corpuscular HGB Conc 32.6 g/dl (31.0-36.0); Mean Corpuscular Hemoglobin 24.7 pg (27.0-33.0); Mean Corpuscular Volume 75.8 fL (80.0-98.0); Mean Platelet Volume 10.5 fL (9.4-12.4); Platelet Count 129 X10*3/uL (160-400); Red Blood Count 4.33 X10*6/uL (4.60-5.80); Red Cell Distribution Width 14.5 % (11.0-16.0); White Blood Count 2.6 X10*3/uL (4.8-10.8)
[2024-09-21 05:43] LABS: Alanine Aminotransferase 100 U/L (0-40); Alkaline Phosphatase 74 U/L (39-117); Anion Gap 14 (12-20); Aspartate Amino Transferase 62 U/L (5-37); Bilirubin Total 0.4 mg/dL (0.0-1.0); Blood Urea Nitrogen 18 mg/dL (9-16); Calcium 8.8 mg/dL (8.4-10.2); Carbon Dioxide 21 mmol/L (22-29); Chloride 108 mmol/L (96-108); Creatinine Clr Calc Pharmacy 156.7; Estimated Glomerular Filt Rate > 60; Glucose Random 99 mg/dL (60-115); Potassium 3.7 mmol/L (3.3-5.1); Sodium 139 mmol/L (135-145); Total Protein 7.1 g/dL (6.5-8.0)
[2024-09-21 05:57] LABS: HBS Num1 26.94 mIU/mL (0-7.99); HBc Num1 0.18 S/CO (0.00-0.79); HBsAGNum1 0.32 S/CO (0.00-0.99); Hepatitis A Antibody IgM 0.14 Index (0-0.79); Hepatitis B Core Antibody Nonreactive (Nonreactive); Hepatitis B Surface Antigen Negative (Negative); ~Hepatitis A Antibody IgM Nonreactive (Nonreactive); ~Hepatitis B Surface Antibody REACTIVE (Nonreactive); ~Hepatitis C Antibody Nonreactive (Nonreactive)
[2024-09-21] MEDS: 0.9 % Sodium Chloride Flush 3 ML SYRINGE IVFLUSH (07:18)
--- NOTE | 2024-09-21 08:09 | PHA.MEDREC ---
Pharmacy Consult ? Medication Reconciliation Pharmacy has completed the medication reconciliation. Spoke to patient, he states he takes nothing besides the allergy medication. Last took this medication about 1 week ago.
[2024-09-21 08:19] VITALS: BP 115/68; PULSE 74; RESP 16; TEMP 36.8; O2SAT 98
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
--- NOTE | 2024-09-21 10:57 | P.PNIM_ITS ---
Subjective Subjective Date of Service: 09/21/24 Interval History: f/u on acute blood loss anemia, gib bleed, suspect hemorrhoidal bleed Physical Exam 2 Vital Signs: Vital Signs: Last Vital Signs Temp 98.3 F 09/21/24 08:19 Pulse 74 09/21/24 08:19 Resp 16 09/21/24 08:19 BP 115/68 09/21/24 08:19 Pulse Ox 98 09/21/24 08:19 O2 Del Method Room Air 09/21/24 08:19 BMI result Body Mass Index 31.1 Const: Other: General: AO X 3, no acute distress Resp: CTA bilateral CVS: S1,S2,RRR GI: +BS, NT, no distention, rectal exam deffered Skin: No rash Neuro: motor grossly intact Psych: appropriate affect Objective Data Active Medications Acetaminophen (Acetaminophen 325 Mg Tablet) 650 mg PO Q6H PRN PRN Reason: Pain, Mild 1-3,fever,headache Calcium Carbonate (Calcium Carbonate 750 Mg Tab.Chew) 750 mg PO Q4H PRN PRN Reason: Heartburn Magnesium Hydroxide (Milk Of Magnesia 30 Ml Oral.Susp) 30 ml PO DAILY PRN PRN Reason: Constipation Melatonin (Melatonin 3 Mg Tablet) 6 mg PO BEDTIME PRN PRN Reason: Insomnia Ondansetron HCl (Ondansetron Hcl 4 Mg/2 Ml Vial) 4 mg IVPUSH Q8H PRN PRN Reason: Nausea and Vomiting Sodium Chloride (0.9 % Sodium Chloride Flush 3 Ml Syringe) [facility] Last Admin: 09/21/24 07:18 Dose: 3 ml Documented By: CRYSTAL Labs 09/21/24 04:26 09/21/24 04:26 Labs: Laboratory Results - last 24 hr 09/20/24 09/21/24 16:35 04:26 MCV 75.3 L 75.8 L MCH 25.0 L 24.7 L MCHC 33.2 32.6 RDW 14.6 14.5 Plt Count 179 129 L D MPV 10.3 10.5 Immature Gran % (Auto) 0.3 Neut % (Auto) 36.1 L Lymph % (Auto) 51.2 H [place] % (Auto) 10.8 Eos % (Auto) 1.3 Baso % (Auto) 0.3 Lymph # (Auto) 1.5 [place] # (Auto) 0.3 Eos # (Auto) 0.0 Baso # (Auto) 0.0 Abs Immat Gran (auto) 0.01 Absolute Neuts (auto) 1.1 L Absolute Nucleated RBC 0.000 0.000 Nucleated RBC % (auto) 0.0 0.0 Anion Gap 14 14 Estim Creat Clear Calc 122.0 156.7 Estimated GFR > 60 > 60 Random Glucose 93 99 Calcium 9.7 8.8 D Iron 43 L TIBC 313 % Saturation 14 L Unsat Iron Binding 270 Total Bilirubin 0.4 0.4 AST 87 H 62 H ALT 134 H 100 H Alkaline Phosphatase 90 74 Total Protein 8.4 H 7.1 Albumin 4.6 4.0 Hepatitis A IgM Ab Nonreactive Hep Bs Antigen Negative Hep Bs Antibody REACTIVE Hep B Core Total Ab Nonreactive Hepatitis C Ab (EIA) Nonreactive Assessment and Plan (1) Elevated LFTs: Status: Acute (2) Acute lower GI bleeding: Status: Acute (3) Hemorrhoids: Status: Acute Plan pt is a 44 yo male with a pmhx significant for thalassemia minor and transverse myelitis with continued r hand deifict, history of bleeding hemorroid who presented to the ED due to rectal bleeding. pt has known internal and external hemohrroids. bleeding has increased in severity with an episode of 30 mins of heavy bleeding, which prompted him to come here. acute lower GI bleed, likely hemorrhoidal - H+H 13/39 to 11.9/31.6 on repeat and now 10.7/32, no active bleed at this time - bleed scan negative - no need for blood transfusion at this time - GI consult recommend surgery consult - NPO - moniotr CBC elevated LFTs - AST 87, ALT 134 - likely fatty liver with lack of etoh and BMI - iron studies as pt is concerned for iron deposition - hepatitis panel - GI consult as above obesity - BMI 31.1 - weight loss encouraged full code VTE prophy: pneumoboots due to bleeding Pt with acute lower GI bleed requiring admission for GI consultation and monitoring for at least 2 midnights stay. Quality Stroke Does the patient have a stroke diagnosis?: No VTE Prior VTE?: No VTE Risk Level:: Medical - moderate - high VTE Device Contraindication: N/A - Device Ordered VTE Drug Contraindication: Treatment Not Indicated
--- NOTE | 2024-09-21 13:26 | MHC.CM.PN ---
PT LIVES ALONE IS INDEPEDENT HAS OWN RIDE HOME WILL NOT NEED SERVICES
--- NOTE | 2024-09-21 14:16 | PM.CNGS ---
History of Present Illness Consult details Consult date: 09/21/24 Requesting physician: Brandin Martinez Narrative: 44 yo male with PMH of thalassemia minor and transverse myelitis admitted to the hospitalist service for acute GI bleed, syncopal episode. He reports an episode of BRBPR for 30 minutes last . Following that episode he reports standing at the sink and had a syncopal episode falling on to the floor. He has since noted fresh blood with every bowel movement with blood on the tissue and dripping in the toilet. He denies abdominal pain, no nausea, or vomiting. No fevers or chills. He reports problems with chronic constipation for years with straining and pushing at stool and has tried different laxatives in the past like colace and fiber supplements with variable effect. He has had two hemorrhoid surgeries in the past in 2015 and 2019 at [facility] and also sigmoidoscopy and colonoscopy which were otherwise normal. He had slight drift in H/H from [address] scan abd pelvis showed no extravasation of contrast, and no evidence of active gastrointestinal bleeding or acute inflammatory process involving the GI tract. General surgery was consulted for possible hemorrhoidectomy. Review of Systems Review of Systems: Yes all other systems are reviewed and are negative [facility] Past Medical History Medical History (Updated 09/21/24 @ 01:06 by Francia Donaldson PA-C) Obesity (BMI 30.0-34.9) Thalassemia minor Social History Social History Unable to assess alcohol history related to: Unknown service: No Meds Allergies Allergy/AdvReac Type Severity Reaction Status Date / Time No Known Allergies Allergy Verified 09/20/24 16:30 Active Medications: Current Medications Acetaminophen (Acetaminophen 325 Mg Tablet) 650 mg PO Q6H PRN PRN Reason: Pain, Mild 1-3,fever,headache Calcium Carbonate (Calcium Carbonate 750 Mg Tab.Chew) 750 mg PO Q4H PRN PRN Reason: Heartburn Loratadine (Loratadine 10 Mg Tablet) 10 mg PO DAILY [facility] Magnesium Hydroxide (Milk Of Magnesia 30 Ml Oral.Susp) 30 ml PO DAILY PRN PRN Reason: Constipation Melatonin (Melatonin 3 Mg Tablet) 6 mg PO BEDTIME PRN PRN Reason: Insomnia Ondansetron HCl (Ondansetron Hcl 4 Mg/2 Ml Vial) 4 mg IVPUSH Q8H PRN PRN Reason: Nausea and Vomiting Sodium Chloride (0.9 % Sodium Chloride Flush 3 Ml Syringe) 3 ml IVFLUSH QSHIFT [facility] Last Admin: 09/21/24 07:18 Dose: 3 ml Physical Exam Vital Signs: Vital Signs: Last Vital Signs Temp 98.3 F 09/21/24 08:19 Pulse 74 09/21/24 08:19 Resp 16 09/21/24 08:19 BP 115/68 09/21/24 08:19 Pulse Ox 98 09/21/24 08:19 O2 Del Method Room Air 09/21/24 08:19 BMI result Body Mass Index 31.1 Const: General: comfortable, no acute distress and alert Orientation/consciousness: patient oriented x3 Resp: Effort & Inspection: normal respiratory effort GI: Palpation (GI): Soft to palpation and nontender Rectal Exam - Male: Yes hemorrhoids (large external hemorrhoids, no evidence of bleeding ), No mass and No tenderness Skin: Other: normal color, warm and dry General skin exam: no rashes or lesions noted Neuro: General: patient oriented x3 and moves all extremities Results Labs 09/21/24 04:26 09/21/24 04:26 Labs: Abnormal lab results 09/20/24 09/20/24 09/21/24 Range/Units 16:35 22:16 04:26 WBC 3.0 L 2.6 L (4.8-10.8) X10*3/uL RBC 4.33 L (4.60-5.80) X10*6/uL Hgb 13.0 L 11.9 L 10.7 L (14.0-18.0) g/dl Hct 39.1 L 35.6 L 32.8 L (42.0-52.0) % MCV 75.3 L 75.8 L (80.0-98.0) fL MCH 25.0 L 24.7 L (27.0-33.0) pg Plt Count 129 L D (160-400) X10*3/uL Neut % (Auto) 36.1 L (45-73) % Lymph % (Auto) 51.2 H (20-40) % Absolute Neuts (auto) 1.1 L (2.0-8.3) x10*3/uL Carbon Dioxide 21 L (22-29) mmol/L BUN 18 H 18 H (9-16) mg/dL Iron 43 L (45-160) mcg/dL % Saturation 14 L (15-50) % AST 87 H 62 H (5-37) U/L ALT 134 H 100 H (0-40) U/L Total Protein 8.4 H (6.5-8.0) g/dL Short CBC 09/20/24 09/20/24 09/21/24 Range/Units 16:35 22:16 04:26 WBC 3.0 L 2.6 L (4.8-10.8) X10*3/uL Hgb 13.0 L 11.9 L 10.7 L (14.0-18.0) g/dl Hct 39.1 L 35.6 L 32.8 L (42.0-52.0) % Plt Count 179 129 L D (160-400) X10*3/uL BMP 09/20/24 09/21/24 16:35 04:26 Sodium 140 139 Potassium 3.8 3.7 Chloride 104 108 Carbon Dioxide 26 21 L BUN 18 H 18 H Creatinine 1.04 0.81 Calcium 9.7 8.8 D Liver Function 09/20/24 09/21/24 Range/Units 16:35 04:26 Total Bilirubin 0.4 0.4 (0.0-1.0) mg/dL AST 87 H 62 H (5-37) U/L ALT 134 H 100 H (0-40) U/L Alkaline Phosphatase 90 74 (39-117) U/L Albumin 4.6 4.0 (3.5-5.0) g/dL All other labs normal. Imaging Abdomen CT scan report/results: report reviewed and image reviewed Assessment and Plan (1) Hemorrhoids: Status: Acute Plan 44 yo male with PMH of thalassemia minor and transverse myelitis admitted for GI bleed secondary to hemorrhoids. No active bleed on imaging. He does have large external hemorrhoids on exam however no evidence of bleeding. He also reports no further episodes of significant bleeding since last week. His H/H is stable and he is clinically appearing well. Discussed following up in the office tomorrow with Dr. Pino to schedule outpatient hemorroidectomy. He is in agreement. Stable for dc from surgical standpoint. Procedures Date of Service Date of Service: 09/21/24
[2024-09-21 14:17] VITALS: BP 116/67; PULSE 74; RESP 15; TEMP 36.6; O2SAT 98
--- NOTE | 2024-09-21 14:27 | PM.DS ---
DS: Providers Provider Date of Service: 09/21/24 Date of admission: 09/21/24 01:13 Date of discharge: 09/21/24 Primary care physician: Yeni Elaine MD Consults: 09/21/24 01:15 Consult to Gastroenterology Routine Consulting Provider: Nahid Garcia Reason for consultation: rectal bleeding, elevated LFTs Has provider been notified: No 09/21/24 01:38 Consult to General Surgery Routine Consulting Provider: Ramona Jesus Reason for consultation: rectal bleeding, known hemorrhoids Has provider been notified: No DS: Diagnosis Discharge Diagnosis (1) Hemorrhoids: Status: Acute DS: Summary Hospital Course Hospital Course: admission hpi Chief Complaint: rectal bleeding pt is a 44 yo male with a pmhx significant for thalassemia minor and transverse myelitis with continued r hand deifict, who presented to the ED due to rectal bleeding. he reports this has been going on for a while now and has been increasing in severity. he had a recent syncopal episode while having COVID and woke in the middle of the night to get a drink of water. he opened the fridge and syncopized. states he woke with blood dripping down his leg from his hemorrhoids. he has bleeding with every BM, and today had an episode that lasted 30 minutes of heavy bleeding. he denies hard stool or diarrhea. no bloody stool. he has a hx of hemorrhoids requiring surgery in 2015 and 2019, and has had 2 colonoscopies that were normal, but reports his father has had colon polyps. he also reports that he is concerned that he has not been following an appropriate diet for having thalassemia minor and feels that he is consuming too much iron. no fhx of hemachromatosis. no heavy etoh or fhx of liver disease. Hospital course pt is a 44 yo male with a pmhx significant for thalassemia minor and transverse myelitis with continued r hand deifict, history of bleeding hemorroid who presented to the ED due to rectal bleeding. pt has known internal and external hemohrroids. bleeding has increased in severity with an episode of 30 mins of heavy bleeding, which prompted him to come here. acute lower GI bleed, likely hemorrhoidal-- H+H to 11.9/31.6 on repeat and now 10.7/32, no active bleed at this time. Was seen by GI with recommendation to see surgery, surgery saw him and recommends outpatient follow up. He is istructed to return if he has further signficant bleeding elevated LFTs - AST 87, ALT 134 - likely fatty liver with lack of etoh and BMI - iron studies as pt is concerned for iron deposition - hepatitis panel - GI consult as above -outpatient follow up with PCP obesity - BMI 31.1 - weight loss encourag Time Attestation Discharge Coordination Time (in mins): 35 Quality: Safe Use of Opioids Does Pt have an Active Cancer Diagnosis on the Problem List?: No Quality: Stroke Does the patient have a stroke diagnosis?: No Physical Exam Vital Signs: Vital Signs: Last Vital Signs Temp 97.8 F 09/21/24 14:17 Pulse 74 09/21/24 14:17 Resp 15 09/21/24 14:17 BP 116/67 09/21/24 14:17 Pulse Ox 98 09/21/24 14:17 O2 Del Method Room Air 09/21/24 14:17 BMI result Body Mass Index 31.1 Const: Other: General: AO X 3, no acute distress Resp: CTA bilateral CVS: S1,S2,RRR GI: +BS, NT, no distention Skin: No rash Neuro: motor grossly intact Psych: appropriate affect DS: Data Data Completed and Pending Labs on day of discharge: Laboratory Results - last 24 hr 09/20/24 09/20/24 09/21/24 16:35 22:16 04:26 WBC 3.0 L 2.6 L RBC 5.19 4.33 L Hgb 13.0 L 11.9 L 10.7 L Hct 39.1 L 35.6 L 32.8 L MCV 75.3 L 75.8 L MCH 25.0 L 24.7 L MCHC 33.2 32.6 RDW 14.6 14.5 Plt Count 179 129 L D MPV 10.3 10.5 Immature Gran % (Auto) 0.3 Neut % (Auto) 36.1 L Lymph % (Auto) 51.2 H [place] % (Auto) 10.8 Eos % (Auto) 1.3 Baso % (Auto) 0.3 Lymph # (Auto) 1.5 [place] # (Auto) 0.3 Eos # (Auto) 0.0 Baso # (Auto) 0.0 Abs Immat Gran (auto) 0.01 Absolute Neuts (auto) 1.1 L Absolute Nucleated RBC 0.000 0.000 Nucleated RBC % (auto) 0.0 0.0 Sodium 140 139 Potassium 3.8 3.7 Chloride 104 108 Carbon Dioxide 26 21 L Anion Gap 14 14 BUN 18 H 18 H Creatinine 1.04 0.81 Estim Creat Clear Calc 122.0 156.7 Estimated GFR > 60 > 60 Random Glucose 93 99 Calcium 9.7 8.8 D Iron 43 L TIBC 313 % Saturation 14 L Unsat Iron Binding 270 Total Bilirubin 0.4 0.4 AST 87 H 62 H ALT 134 H 100 H Alkaline Phosphatase 90 74 Total Protein 8.4 H 7.1 Albumin 4.6 4.0 Hepatitis A IgM Ab Nonreactive Hep Bs Antigen Negative Hep Bs Antibody REACTIVE Hep B Core Total Ab Nonreactive Hepatitis C Ab (EIA) Nonreactive Discharge Plan Discharge Anticipated Discharge Date/Time: 09/21/24 14:24 Patient Disposition: Home, Self-Care Discharge Diagnosis: Lower GI bleeding, hemorrohoid Referrals: Yeni Elaine MD [Primary Care Provider] - 1 Week Edwin Pino MD [Physician] - 1 Day (Appointment scheduled for 09/22/24 at 2:30. ) Discharge Medications: Continued All Day Allergy (cetirizine) 10 mg capsule 10 mg PO DAILY Qty: 30 0RF Discharge Orders: Discharge Order (Routine); Ordered 09/21/24 Ordered By: Brandin Martinez Diet: Advance to usual diet Activity on Discharge: As tolerated Stand Alone Forms: Patient Portal Discharge page Print Language: Yi Care Plan Goals: resolution of hemorrhoid Health Concerns: Rectal bleeding due to hemorrhoids Plan of Treatment: Follow-up with Dr. Vyas, if bleeding return please return to the ED or call 911 Assessment: see above
--- NOTE | 2024-09-21 14:43 | MHC.CM.PN ---
PT DCD HOME SELF CARE
[2024-09-21 14:54] VITALS: BP 116/67; PULSE 74; RESP 15; TEMP 36.6; O2SAT 98
== END 2024-09-21 14:52 | disposition home or self-care (01) | DRG 254 ==
LOC: HO.ED 09-21 00:21 → HO.EDOVER 09-21 01:18
PROVIDERS: Physician Assistant; Physician Assistant Medical; Admitting Provider Physician Assistant; Emergency Provider Emergency Medicine; PCP Internal Medicine; Visit Provider Internal Medicine
DX: K64.8 Other hemorrhoids (principal); G37.3 Acute transverse myelitis in demyelinating disease of central nervous system; K76.0 Fatty (change of) liver, not elsewhere classified; D56.3 Thalassemia minor; E66.9 Obesity, unspecified; Z68.31 Body mass index [BMI] 31.0-31.9, adult; Z71.3 Dietary counseling and surveillance; K59.09 Other constipation; K64.4 Residual hemorrhoidal skin tags; D62 Acute posthemorrhagic anemia
CPT/HCPCS: 36415; 74178; 80053; 83540; 85014; 85018; 85025; 85027; 86704; 86706; 86709; 86803; 87340; 99285; Q9967

== ENCOUNTER → 2024-09-20 21:29 | Outpatient (BNV) | payer BC, SELFPAY | PROVIDERS: PCP Internal Medicine; Visit Provider Radiology Diagnostic Radiology | DX: K92.2 Gastrointestinal hemorrhage, unspecified (principal) | CPT/HCPCS: 74178 ==

== ENCOUNTER → 2024-09-21 01:13 | Outpatient (BNV) | payer BC, SELFPAY | PROVIDERS: Admitting Provider Physician Assistant; Emergency Provider Emergency Medicine; PCP Internal Medicine; Visit Provider Internal Medicine | DX: K92.2 Gastrointestinal hemorrhage, unspecified (principal); K64.9 Unspecified hemorrhoids; R79.89 Other specified abnormal findings of blood chemistry; E66.811 Obesity, class 1 | CPT/HCPCS: 99235; 99499 ==

== ENCOUNTER → 2024-09-21 01:13 | Outpatient (BNV) | payer BC, SELFPAY | PROVIDERS: Admitting Provider Physician Assistant; Emergency Provider Emergency Medicine; PCP Internal Medicine; Visit Provider Physician Assistant Surgical | DX: K64.9 Unspecified hemorrhoids (principal) | CPT/HCPCS: 99222 ==

== ENCOUNTER → 2024-09-21 01:13 | Outpatient (BNV) | payer BC, SELFPAY | PROVIDERS: Admitting Provider Physician Assistant; Emergency Provider Emergency Medicine; PCP Internal Medicine; Visit Provider Internal Medicine Gastroenterology | DX: K92.2 Gastrointestinal hemorrhage, unspecified (principal) | CPT/HCPCS: 99223 ==

== ENCOUNTER 2024-09-22 14:24 | Outpatient (AMB) | payer BC, SELFPAY ==
--- NOTE | 2024-09-22 14:26 | MHC.OFFVIS ---
Vital Signs 09/22/24 14:27 Height 6 ft 2 in Weight 244 lb 11.41 oz BMI 31.4 BP 122/62 Blood Pressure Location Rt brachial Position Sitting Pulse 72 Intake Visit Reasons: bleeding hemorrhoids Intake Note: Patient in office today in ER follow up for bleeding hemorrhoids. CC: Patient reports rectal bleeding after having a BM . Patient s/p X2 hemorrhoidectomy, one for internal and the other one for external hemorrhoids. He also reports constipation sometimes. Clay Molder Required: No Accompanied by: Self / Same As Patient Allergies No Known Allergies Allergy (Verified 09/22/24 14:35) HPI Comments Details: 44-year-old male patient presenting with complaints of rectal bleeding from hemorrhoids which began approximately week prior after developing COVID. He reports becoming dizzy, passing out and apparently striking his back. When he awoke, he was covered with a blood in his leg. He has a prior history of hemorrhoids and previously underwent 2 hemorrhoidectomies performed at [facility] by Dr. Ogden. Since this initial episode he has had several additional episodes 1 lasting approximately 30 minutes after which he presented to the emergency department for further evaluation. He was noted to have both external and internal hemorrhoids and presents today for evaluation for possible hemorrhoidectomy. He does report a history of chronic constipation and reports needing to strain to have a bowel movement. Every time he has a bowel movement he notes pain and bleeding. In the emergency department he was noted to have a slight decrease in his hemoglobin from 13-11.9. CT scan of the abdomen and pelvis revealed no evidence of extravasation of contrast and no evidence of acute gastrointestinal bleeding. He does have a past medical history of thalassemia minor and transverse myelitis which developed after a MMR injection in the right arm. [facility] Medical History Obesity (BMI 30.0-34.9) Thalassemia minor Surgical History H/O colonoscopy H/O hemorrhoidectomy Family History Paternal Grandmother Breast cancer Social History Unable to assess alcohol history related to: Unknown Alcohol intake: never Patient Tobacco Use Status: Never used Tobacco Use of substances other than those prescribed or required for medical reasons: No service: No Review of Systems Const All systems reviewed & are unremarkable except as noted in HPI and below Physical Exam Vital Signs: Last Vital Signs Pulse 72 09/22/24 14:27 BP 122/62 09/22/24 14:27 BMI result Body Mass Index 31.4 Const General: cooperative and no acute distress Nutritional Appearance: well nourished Orientation/consciousness: patient oriented x3 Limitations: no limitations HEENT Head: Yes normocephalic and Yes atraumatic Ears: hearing grossly normal bilaterally Resp Effort & Inspection: normal respiratory effort, no audible wheezes, no cough and no respiratory distress Cardio Jugular venous distension: no JVD GI Other: Rectal examination: External examination reveals external skin tags or sentinel piles. No perirectal abscess, no fistula, no erythema Digital rectal examination: Tenderness within the anal canal with a hypertrophic sphincter. Findings suggestive of an anal fissure. Unable to perform an internal anal exam with an anoscope due to the severity of his pain. 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 I recommended an exam under anesthesia with possible lateral internal sphincterotomy and possible hemorrhoidectomy. After discussion of the procedure, risks, and alternatives, he consents to the surgery. This will be scheduled as a short-stay surgery at his earliest convenience. Coding Level of Care Code New Pt Level 4 (11365) Diagnoses Chronic anal fissure K60.1
[2024-09-22 14:27] VITALS: BP 122/62; PULSE 72; BMI 31.4
== END 2024-09-22 14:53 | disposition home or self-care (01) ==
LOC: HO.HGS 14:24
PROVIDERS: PCP Internal Medicine; Visit Provider Surgery
DX: K60.1 Chronic anal fissure (principal)
CPT/HCPCS: 99204

== ENCOUNTER → 2024-09-22 14:24 | Outpatient (BNVA) | payer BC, SELFPAY | PROVIDERS: PCP Internal Medicine; Visit Provider Surgery ==

== ENCOUNTER 2024-09-26 12:51 | Day surgery (SDC) | payer BC, SELFPAY ==
[2024-09-26] VITALS (10 sets, daily range): BP systolic 100–150; BP diastolic 54–98; PULSE 64–102; RESP 16–17; TEMP 36.5–37.2; O2SAT 94–100; BMI 31.2
[2024-09-26] MEDS: Lactated Ringers 1,000 ML 100 ML IVCONT (13:47)
--- NOTE | 2024-09-26 14:44 | MHC.SHP ---
Pre-Procedural Eval Section A - 24 Hr Update-Section A only Date of Service: 09/26/24 The patient is an INPATIENT: No Changes since office visit: Yes Patient answered all questions; No Cold of Flu in the past 2 weeks, No New Medical Problems and No Changes in Medication The patient has been examined within 24 hours of the surgical procedure. The History & Physical has been completed within 30 days and I have reviewed it.: Yes Section B - Complete if H&P > 30 days Chief Complaint: Chronic anal fissure Allergies: Allergies Allergy/AdvReac Type Severity Reaction Status Date / Time No Known Allergies Allergy Verified 09/26/24 13:24 Plan Diagnosis/Plan: Unchanged I have reviewed the history and physical and performed a pertinent physical examination on my patient. No changes have occurred unless specified. Time Spent With Patient Time: Total time managing care of this patient today ____ minutes.
--- NOTE | 2024-09-26 14:59 | P.CONAN_ITS ---
Documented by User: Sarah Mcdaniel NP 09/23/24 13:31 HPI - Anesthesia Eval Consult details Narrative: 44yo M for EUA, Lateral Internal Sphincterotomy, possible hemorrhoidectomy [facility] [place] admit 09/20/24 Hospital course pt is a 44 yo male with a pmhx significant for thalassemia minor and transverse myelitis with continued r hand deifict, history of bleeding hemorroid who presented to the ED due to rectal bleeding. pt has known internal and external hemohrroids. bleeding has increased in severity with an episode of 30 mins of heavy bleeding, which prompted him to come here. acute lower GI bleed, likely hemorrhoidal-- H+H to 11.9/31.6 on repeat and now 10.7/, no active bleed at this time. Was seen by GI with recommendation to see surgery, surgery saw him and recommends outpatient follow up. He is istructed to return if he has further signficant bleeding PMFSH Active Problems Active Problems: All Active Problems Chronic anal fissure (Acute) Obesity (BMI 30.0-34.9) (Acute) Elevated LFTs (Acute) Thalassemia minor (Acute) Acute lower GI bleeding (Acute) Hemorrhoids (Acute) Past Medical History Medical History Obesity (BMI 30.0-34.9) Thalassemia minor Family History Family History Paternal Grandmother Breast cancer Surgical History Surgical History H/O colonoscopy H/O hemorrhoidectomy Social History Social History Are you a primary daycare assistant to a significant other at home: No Do you presently have visiting nurse or other home services: No Unable to assess alcohol history related to: Unknown Alcohol intake: never Comment: balance issues at times Patient Tobacco Use Status: Never used Tobacco Use of substances other than those prescribed or required for medical reasons: No Have you been hit, kicked, punched, or otherwise hurt by someone within the past year? If so, by whom?: No Are you DNR?: No Advance Directives: No Advance Directives Information Provided: No Advance Directives on File: No Recently lost weight without trying: No How much weight loss: Not applicable Eating poorly because of decreased appetite: No Nutrition screen score: 0 Nutrition Risks: No Nutritional Risk Poor oral hygiene: Yes (missing teeth) service: No Meds Allergies Allergy/AdvReac Type Severity Reaction Status Date / Time No Known Allergies Allergy Verified 09/26/24 13:24 Exam Pertinent Lab Results Pertinent Lab Results: Laboratory Tests 09/21/24 04:26 WBC 2.6 L Hgb 10.7 L Hct 32.8 L Plt Count 129 L D Sodium 139 Potassium 3.7 Chloride 108 Carbon Dioxide 21 L BUN 18 H Creatinine 0.81 Assessment and Plan Assessment Anesthesia Assessment: Chart Reviewed Documented by User: Yen Quintero DO 09/26/24 15:15 [facility] Past Medical History Medical History Obesity (BMI 30.0-34.9) Thalassemia minor Family History Family History Paternal Grandmother Breast cancer Family history of problems with anesthesia: No Surgical History Surgical History H/O colonoscopy H/O hemorrhoidectomy History of Problems with Anesthesia: No Social History Social History Are you a primary daycare assistant to a significant other at home: No Do you presently have visiting nurse or other home services: No Unable to assess alcohol history related to: Unknown Alcohol intake: never Comment: balance issues at times Patient Tobacco Use Status: Never used Tobacco Use of substances other than those prescribed or required for medical reasons: No Have you been hit, kicked, punched, or otherwise hurt by someone within the past year? If so, by whom?: No Are you DNR?: No Advance Directives: No Advance Directives Information Provided: No Advance Directives on File: No Recently lost weight without trying: No How much weight loss: Not applicable Eating poorly because of decreased appetite: No Nutrition screen score: 0 Nutrition Risks: No Nutritional Risk Poor oral hygiene: Yes (missing teeth) service: No Meds Allergies Allergy/AdvReac Type Severity Reaction Status Date / Time No Known Allergies Allergy Verified 09/26/24 13:24 Exam Exam Date and Time: 09/26/24 1500 Height,Weight and Vital Signs: Height 6 ft 2 in Weight 110.2 kg Vital Signs Temperature 97.7 F 09/26/24 13:25 Pulse Rate 66 09/26/24 13:25 Respiratory Rate 16 09/26/24 13:25 Blood Pressure 119/54 L 09/26/24 13:25 Pulse Oximetry 98 09/26/24 13:25 Oxygen Delivery Method Room Air 09/26/24 13:25 Temperature 97.7 F 09/26/24 13:25 Pulse Rate 66 09/26/24 13:25 Respiratory Rate 16 09/26/24 13:25 Blood Pressure 119/54 L 09/26/24 13:25 Pulse Oximetry 98 09/26/24 13:25 Oxygen Delivery Method Room Air 09/26/24 13:25 Airway Mallampati Class: II TM Dist: <=3cm Neck ROM: Full Loose/Missing/Broken Teeth: No (patient denies any loose or broken teeth) Heart: S1S2 Lungs: CTAB Assessment and Plan Assessment Anesthesia Assessment: Anesthesia Plan Discussed and Chart Reviewed Final Anesthetic Review Family History of Problems with Anesthesia: No History of Problems with Anesthesia: No NPO: Yes ASA Class: II Final Preanesthetic Review: No Changes in Pt Med Stat, Meds/Allgs Chart Reviewed, Consent Obtained/Reviewed and Anes Risks/Benef Reviewed Patient Risk: Low Procedure Risk: Low Anesthetic Plan Anesthetic Plan: GA and Agree w/ Assess. and Plan Disposition: Standard PACU
--- NOTE | 2024-09-26 16:09 | W.PM.OPN ---
Operative Note Operative Note Date of Service: 09/26/24 Narrative: Preoperative diagnosis: Rectal bleeding, possible anal fissure, possible bleeding internal hemorrhoid Postoperative diagnosis: Same Procedure: Exam under anesthesia, hemorrhoidectomy. Surgeon: Edwin Pino MD Senior Ssis Developer: Anesthesia: General LMA Indications for procedure: 44-year-old male patient with a prior history of hemorrhoidectomies x2 presenting with a several week history of severe rectal bleeding after having a bowel movement. On examination the patient was found to have perianal tenderness suggestive of an anal fissure however internal examination was not possible due to pain. Operative findings: 2 large internal bleeding hemorrhoids including in the 12:00 o'clock and 4 o'clock position. No anal fissures identified. Normal sphincter tone. No anal or rectal masses appreciated. External anal skin tags were noted. No evidence of thrombosis. Specimen: Hemorrhoids x2 Estimated blood loss: 30 mL Complications: None Procedure details: Patient was brought to the OR and placed in a supine position. After administering general anesthesia he was placed in a lithotomy position. The patient's perianal skin was prepped with Betadine and draped in a sterile fashion. A surgical time-out was called the consent confirmed. Patient received preoperative antibiotics and Venodyne boots were in place. Local anesthesia was infiltrated a perianal location. Anoscopic examination was performed. No anal fissure or sphincter hypertrophy was identified. 2 large bleeding hemorrhoids were immediately identified 1 in the 12 o'clock position in the 2nd in the beginning in the 4 o'clock position, the hemorrhoid was grasped with a triangular clamp. A Sheree clamp was then placed below this. The hemorrhoid was excised above the Sheree clamp. A 3-0 Polysorb suture was then placed at the base of the clamp and tied off. A baseball-type stitch was then performed below the clamp. The clamp was removed and a running locked suture was then performed going back to the original suture. This was then tied off. Attention was then directed to the 12 o'clock position were again a triangular clamp was placed on the hemorrhoid in a Sheree clamp placed below at the base of the hemorrhoid. The hemorrhoid was then excised using a Metzenbaum scissors. This was sent to pathology for further examination. Once again a 3-0 chromic suture was used starting at the tip of the clamp and working as a baseball stitch below the clamp. The clamp was removed and a running locked suture was then placed back to the original suture.. This was tied off. Pressure was held to maintain hemostasis. Good hemostasis was identified. A packing containing Surgicel wrapped around a 4 x 4 gauze was then placed into the anal canal. This was then covered with an ABD pad and mesh panties. The patient tolerated the procedure well. Sponge, instrument, needle counts reported as correct. The patient was transferred to PACU in stable condition.
[2024-09-26] MEDS: Haloperidol Lactate 5 MG/ML VIAL 1 MG IVPUSH (16:35)
[2024-09-26] MEDS: fentaNYL citrate/PF 100 MCG/2 ML VIAL 50 MCG IVPUSH ×2 (16:45→16:50)
== END 2024-09-26 17:23 | disposition home or self-care (01) ==
PROVIDERS: PCP Internal Medicine; Visit Provider Surgery
PROC: (CPT 46260; principal; 2024-09-26 14:30)
DX: K62.5 Hemorrhage of anus and rectum (principal); K64.8 Other hemorrhoids; K59.09 Other constipation; E66.9 Obesity, unspecified; Z68.31 Body mass index [BMI] 31.0-31.9, adult; D56.3 Thalassemia minor; G37.3 Acute transverse myelitis in demyelinating disease of central nervous system; Z98.890 Other specified postprocedural states
CPT/HCPCS: 46260; 88304; J1100; J1630; J2003; J2250; J2405; J2704; J2795; J3010

== ENCOUNTER → 2024-09-26 12:51 | Outpatient (BNV) | payer BC, SELFPAY | PROVIDERS: PCP Internal Medicine; Visit Provider Surgery | DX: K64.8 Other hemorrhoids (principal) | CPT/HCPCS: 46260 ==

== ENCOUNTER 2024-10-06 10:35 | Outpatient (AMB) | payer BC, SELFPAY ==
--- NOTE | 2024-10-06 10:36 | A.OFFVIS_ITS ---
Vital Signs 10/06/24 10:41 Height 6 ft 2 in Weight 240 lb 4.862 oz BMI 30.8 Respiration 16 Pulse 62 Intake Visit Reasons: S/P sphincterotomy Intake Note: Patient is seen in office for post op assessment post Exam under anesthesia, hemorrhoidectomy. Pt c/o:minimal pain, some constipation and discharge surgery:09/26/24 Pharmacist Aide Required: No Accompanied by: Self / Same As Patient Allergies No Known Allergies Allergy (Verified 10/06/24 10:41) Medication List - Last Reconciled 10/06/24 by Edwin Pino MD cetirizine (All Day Allergy (cetirizine)) 10 mg PO DAILY HPI Comments Details: 44-year-old male patient status post hemorrhoidectomy on 09/28/2024. Overall he feels much improved with increased bleeding. He does have a small amount of bleeding on his stool but overall is much improved. He stopped taking the pain medication several days ago because it makes him sweaty. He denies any heavy bleeding since the surgery. [facility] Medical History Obesity (BMI 30.0-34.9) Thalassemia minor Surgical History H/O colonoscopy H/O hemorrhoidectomy (09/26/24) Family History Paternal Grandmother Breast cancer Social History Are you a primary hemodialysis patient care specialist to a significant other at home: No Do you presently have visiting nurse or other home services: No Unable to assess alcohol history related to: Unknown Alcohol intake: never Comment: balance issues at times Patient Tobacco Use Status: Never used Tobacco service: No Physical Exam Const General: no acute distress and anxious Nutritional Appearance: well nourished Orientation/consciousness: patient oriented x3 Limitations: no limitations Resp Effort & Inspection: normal respiratory effort GI Other: Anal examination reveals some mild external skin tags and anal swelling secondary to the previous hemorrhoidectomy. No evidence of ongoing bleeding or infection. Neuro General: patient oriented x3 Extrem General: Yes no clubbing, cyanosis or edema Assessment & Plan Assessment & Plan (1) Acute lower GI bleeding: Code(s): K92.2 - Gastrointestinal hemorrhage, unspecified Category: Medical (2) Bleeding hemorrhoid: Code(s): K64.9 - Unspecified hemorrhoids Category: Medical Plan 44-year-old male patient status post hemorrhoidectomy for severe bleeding hemorrhoids. Overall he is much improved with decreased pain and bleeding. Examination reveals no evidence of infection or ongoing bleeding. I recommend he continue to do warm soaks and follow up in 1 month. Coding Level of Care Code Global (71979) Diagnoses Acute lower GI bleeding K92.2 Bleeding hemorrhoid K64.9
[2024-10-06 10:41] VITALS: PULSE 62; RESP 16; BMI 30.8
== END 2024-10-06 10:50 | disposition home or self-care (01) ==
LOC: HO.HGS 10:36
PROVIDERS: PCP Internal Medicine; Visit Provider Surgery
DX: K92.2 Gastrointestinal hemorrhage, unspecified (principal); K64.9 Unspecified hemorrhoids
CPT/HCPCS: 99024

== ENCOUNTER 2024-11-08 10:20 | Outpatient (AMB) | payer BC, SELFPAY ==
--- NOTE | 2024-11-08 10:25 | A.OFFVIS_ITS ---
Vital Signs 11/08/24 10:39 Height 6 ft 2 in Weight 240 lb 8 oz BMI 30.9 BP 118/70 Blood Pressure Location Lt brachial Position Sitting Pulse 76 Intake Visit Reasons: 1 month follow up, post hemorrhoidectomy Intake Note: Patient is seen in office for one month follow up visit, post hemorrhoidectomy. Pt c/o: admits to slight constipation taking Colace as needed, denies any other concerns Senior Software Developer Required: No Accompanied by: Self / Same As Patient Allergies No Known Allergies Allergy (Verified 11/08/24 10:38) HPI Comments Details: 44-year-old male presents to office for 1 month follow up s/p hemorrhoidectomy. Patient states he is doing amazing. He has had no bleeding, pain from the anus. He states he is able to sit and go about daily activity as normal. His only concern was some constipation over the past few days. Patient states he has not been consistent with taking colace over this time. [facility] Medical History Obesity (BMI 30.0-34.9) Thalassemia minor Surgical History H/O colonoscopy H/O hemorrhoidectomy (09/26/24) Family History Paternal Grandmother Breast cancer Social History Are you a primary nanny caregiver to a significant other at home: No Do you presently have visiting nurse or other home services: No Unable to assess alcohol history related to: Unknown Alcohol intake: never Comment: balance issues at times Patient Tobacco Use Status: Never used Tobacco service: No Review of Systems Const All systems reviewed & are unremarkable except as noted in HPI and below Physical Exam Vital Signs: Last Vital Signs Pulse 76 11/08/24 10:39 BP 118/70 11/08/24 10:39 BMI result Body Mass Index 30.9 Const General: cooperative, healthy appearing, comfortable, no acute distress and well groomed Orientation/consciousness: patient oriented x3 GI Other: Visual inspection of anus shows small size tissue protruding. No evidence of inflamed or thrombosed hemorrhoids. No gross blood or infection noted. Neuro General: patient oriented x3 Assessment & Plan Assessment & Plan (1) Bleeding hemorrhoid: Code(s): K64.9 - Unspecified hemorrhoids Category: Medical Plan: see below Plan 44-year-old male presenting for 1 month follow up s/p hemorrhoidectomy. Patient is doing well. No concerns at this time. Denies pain, discharge or bleeding from the anus. Physical exam shows appropriate healing, no gross blood or signs of infection. We discussed his constipation. Recommended resuming daily bowel regimen including colace, hydration and increasing dietary fiber. Patient agreeable to this plan. Patient no longer requiring follow up. He can call to make an appointment to be seen with any future concerns. Coding Level of Care Code Global (66747) Diagnoses Bleeding hemorrhoid K64.9
[2024-11-08 10:39] VITALS: BP 118/70; PULSE 76; BMI 30.9
--- OUTSIDE RECORDS SUMMARY | 2024-11-08 11:50 | XMS_ITS | Patient Health Record ---
Author Organization [facility] Address [address] [place] [address] Care Team Providers Care Inlayer Name Role Phone Argentina Yeni Primary Care Provider Remedios Mccormick Unavailable [phone] Allergies Allergen (clinical drug ingredient) Drug/Non Drug Allergy documented on EMR Reaction Allergy Type Onset Date Status codeine Codeine Sulfate vomiting Drug Allergy A ctive Reason For Referral No Information Medications Medication SIG (Take, Route, Fr equency, Duration) Notes Start Date End Date Status Ciclopirox 0.77 % 1 application to aff ected area Externally Twice a day for 365 days Active Loratadine 10 MG 1 tablet Orally Once a day for 30 day(s) Active Social History Tobacco Use: Social History Observation Description Date Details (start date - stop date) Never Smoker NA - NA Tobacco Use/Smoking Question Answer Notes Are you a: nonsmoker Additional Findings: Tobacco Non-User Current no n-smoker Alcohol Screen Question Answer Notes Did you have a drink containing alcohol in the p ast year? No Points 0 Interpretation Negative Tobacco use other than smoking: Question Answer Notes Are you an other tobacco user? No Problems Problem Type SNOMED Code ICD Code Onset Dates Problem Status W/U Status Risk Notes Problem Tinea unguium (671338274) Tinea unguium (B35.1) Active confirmed Plan Of Treatment Pending Test Test Name Order Date [id number] Plate 03/01/2020 Next Appt Details Provider Name:Remedios gonzales, 11/17/2024 08:30:00 AM, [address] [facility], [place], [address], Insurance Providers Payer Name Payer Address Payer Phone Subscriber Number Group Number Insured Name Patient Relationship to Insured Coverage Start Date Coverage End Date [employer] All Others [address] [place] [address] [phone] [id number] Sridhar Mejía Self - patient is the insured Medical (General) History Medical History History ICD Code Chicken pox Multiple sclerosis, right side Surgical History Surgery Date(Month/Year) hemorrhoidectomy 09/2019
== END 2024-11-08 11:06 | disposition home or self-care (01) ==
LOC: HO.HGS 10:21
PROVIDERS: PCP Internal Medicine; Visit Provider Surgery
DX: K64.9 Unspecified hemorrhoids (principal)
CPT/HCPCS: 99024

== ENCOUNTER → 2024-11-08 10:20 | Outpatient (BNVA) | payer BC, SELFPAY | PROVIDERS: PCP Internal Medicine; Visit Provider Surgery ==

== ENCOUNTER 2025-03-25 20:33 | Emergency (ER) | payer BC, SELFPAY ==
--- OUTSIDE RECORDS SUMMARY | 2024-11-17 04:30 | XMS_ITS ---
Author Organization [facility] Address [address] [place] [address] Care Team Providers Care Line Server Name Role Phone Yeni Elaine Primary Care Provider Remedios Mccormick [phone] Encounters Encounter Location Date Provider Diagnosis [address] [address] 11/17/2024 Remedios Salmeron Plan Of Treatment No Information Progress Notes * Sridhar SHARIFDOB:1979 (44 yo M)Acc No.[id number]:11/17/2024 Progress Notes Patient: Sridhar TOMLINSON Provider: Justa Salmeron DPM :1980 A ge:44 Y S ex:Male Date:11/17/2024 Address:[address] [place], [place] [id number] Pcp:Yeni Elaine Subjective: * Chief Complaints: * * Medical History: Objective: * Vitals: Assessment: Plan: * Treatment: * Images: * The named appointment provid er may or may not be the originator of this progress note, and it is not deemed complete until electronically signed by the appointment provider. Sign off status: Pending * Provider: Justa Salmeron DPM Date: 0 11/17/2024 Generated for Karli dianne/Michaela/eTransmitting on: 0 03/25/2025 08:43 PM EDT
--- NOTE | ~2025-03-25 | CT_ITS ---
CLINICAL HISTORY: flank pain, concern for stone CT abdomen and pelvis without contrast Comparison: CT/SR - CT GI BLEED ABD PEL WO/W IVCON - 09/20/24 21:45 EDT Findings: No consolidation or effusion. Mild left hydronephrosis and hydroureter with left ureterovesicular junction 0.1 cm obstructing nephrolith, axial image number 85 of 103. (Previously in the left kidney interpolar region on 09/20/2024.). There is diffuse fecal material seen throughout the colon. The liver, spleen, kidneys, and pancreas are within normal limits. The appendix is within normal limits. The prostate is within normal limits. No acute fracture. IMPRESSION: 1. Left hydronephrosis and hydroureter due to 0.1 cm obstructing left ureterovesicular junction nephrolith. 2. Constipation. This document has been electronically signed by: Ryan Dobson MD on 03/25/2025 21:53:41
[2025-03-25 20:36] VITALS: BP 119/84; PULSE 84; RESP 22; TEMP 37; O2SAT 94; BMI 34.9
--- NOTE | 2025-03-25 20:36 | ED.GENADULT ---
HPI - General Adult General Chief complaint: Back Pain/Injury Stated complaint: lower back pain Time Seen by Provider: 03/25/25 20:40 History of Present Illness HPI narrative: Patient is a 44-year-old male presents today with having sudden onset of left-sided abdominal pain. The pain is very sharp. Radiates to the left lower quadrant. Has a history of kidney stone in the past. No diabetes no high blood pressure. Patient is from home. History of thalassemia minor. History of hemorrhoids in the past. No coughing or congestion or upper respiratory symptoms. No diaphoresis. Related Data Previous Rx's ?Medication ?Instructions ?Recorded cetirizine 10 mg capsule (All Day 10 mg PO DAILY #30 caps 12/07/23 Allergy (cetirizine)) ondansetron 4 mg disintegrating 4 mg PO TID PRN nausea and 03/26/25 tablet vomiting 5 days #10 tabs oxycodone 5 mg tablet 5 mg PO Q8H PRN pain #7 tabs 03/26/25 prednisone 20 mg tablet 20 mg PO DAILY #7 tabs 03/26/25 Allergies Allergy/AdvReac Type Severity Reaction Status Date / Time No Known Allergies Allergy Verified 03/25/25 20:38 Review of Systems Review of Systems: Positive abdominal pain Yes all other systems are reviewed and are negative PMFSH Past Medical History Attestation statement: The following information was validated with the patient. Medical History Obesity (BMI 30.0-34.9) Thalassemia minor Surgical History H/O colonoscopy H/O hemorrhoidectomy (09/26/24) Family History Family History Paternal Grandmother Breast cancer Social History Social History Are you a primary animal care attendant to a significant other at home: No Do you presently have visiting nurse or other home services: No Unable to assess alcohol history related to: Unknown Alcohol intake: never Comment: balance issues at times Patient Tobacco Use Status: Never used Tobacco Smoked in Last 30 Days: No Use of substances other than those prescribed or required for medical reasons: No Advance Directives: No Advance Directives Information Provided: No Do you have a plan to hurt others: No Plan service: No Physical Exam ED Exam Exam: Appearance: Alert. Oriented X3. No acute distress. Eyes: Pupils equal, round and reactive to light. ENT: Pharynx normal. Neck: Normal inspection. Neck supple. No lymph nodes noted. No crepitus CVS: Normal heart rate and rhythm. Pulses normal. Normal S1 and S2 Respiratory: No respiratory distress. Breath sounds normal. No Wheezing. No rales Abdomen: Soft and nontender. No rigidity. No distention. good BS x4 Skin: Skin warm and dry. Normal skin color. Normal skin turgor. Extremities: No lower extremity edema. Neurovascular intact to all extremities. No Lacerations. No Rash Neuro: No motor deficit. No sensory deficit. Moving all extermities. No slurred speech Vital Signs: Vital Signs - 24 hr 03/25/25 20:36 03/25/25 20:53 03/25/25 21:13 Temperature 98.6 F Pulse Rate 84 77 Respiratory Rate 22 H 20 20 Blood Pressure 119/84 152/98 H Pulse Oximetry 94 100 Oxygen Delivery Method Room Air Room Air Oxygen Flow Rate 03/25/25 22:17 Temperature 97.9 F Pulse Rate 74 Respiratory Rate 18 Blood Pressure 116/61 Pulse Oximetry 97 Oxygen Delivery Method Nasal Cannula Oxygen Flow Rate 2 BMI result Body Mass Index 34.9 Course Course Course Narrative: Rapid medical examination performed in triage by Margarita Rogers PA-C. Patient is a 44 year old assigned male at presenting to the emergency department with flank pain. Detailed physical exam and review of systems are deferred to the opening machine cleaner. Labs, imaging ordered. Patient placed back in the waiting room pending room availability and results. Medications Administered Discontinued Medications Generic Name Dose Route Start Last Admin Trade Name Freq PRN Reason Stop Dose Admin Sodium Chloride 1,000 mls @ 999 mls/hr 03/25/25 20:45 03/25/25 20:53 Ns IV 03/25/25 21:45 999 mls/hr .Q1H1M SHREYAS Administration Sodium Chloride 1,000 mls @ 999 mls/hr 03/25/25 21:15 03/25/25 21:43 Ns IV 03/25/25 22:15 999 mls/hr .Q1H1M SHREYAS Administration Ketorolac Tromethamine 15 mg 03/25/25 20:37 03/25/25 20:54 Ketorolac Tromethamine 15 Mg/Ml Vial IVPUSH 03/25/25 20:38 15 mg ONCE ONE Administration Morphine Sulfate 4 mg 03/25/25 20:37 03/25/25 20:53 Morphine Sulfate 4 Mg/Ml Cartridge IVPUSH 03/25/25 20:38 4 mg ONCE ONE Administration Protocol Ondansetron HCl 4 mg 03/25/25 20:37 03/25/25 20:53 Ondansetron Hcl 4 Mg/2 Ml Vial IVPUSH 03/25/25 20:38 4 mg ONCE ONE Administration Medical Decision Making Medical Decision Making [facility] Narrative: Extreme left-sided abdominal pain. CT scan positive for having kidney stone. No abscess no perforation. Patient's creatinine came back positive for a creatinine of 1.7. Given IV fluids. Baseline creatinine is normal. Patient's urine not infected symptom much improved after pain medication CT positive for a 1 mm left UVJ stone. We contacted Urology Dr. Jolly. Will have patient closely follow-up. He recommended for patient be started on a low dose of steroid 20 mg along with Flomax pain medication close follow-up outpatient. No NSAID for patient as his creatinine is elevated patient is currently in stable condition will discharge home Differential Diagnosis Differential Diagnoses: The differential diagnosis associated with the presentation includes Diverticulitis, abscess, perforation, kidney stone Admission/Observation Consideration of admission/observation: Escalation of care including admission/observation considered Will need close follow-up Consult Healthcare Provider Management of the patient was discussed with: Director [employer] (Urology) Lab Data [facility] Lab Attestation statement: I reviewed the patient's lab results. 03/25/25 20:48 03/25/25 20:48 Labs: Lab Results 03/25/25 03/25/25 Range/Units 20:48 23:03 WBC 7.3 (4.8-10.8) X10*3/uL RBC 5.64 D (4.60-5.80) X10*6/uL Hgb 13.8 L D (14.0-18.0) g/dl Hct 41.5 L D (42.0-52.0) % MCV 73.6 L (80.0-98.0) fL MCH 24.5 L (27.0-33.0) pg MCHC 33.3 (31.0-36.0) g/dl RDW 16.8 H (11.0-16.0) % Plt Count 233 D (160-400) X10*3/uL MPV 10.2 (9.4-12.4) fL Immature Gran % (Auto) 0.1 (0.0-0.4) % Neut % (Auto) 50.2 (45-73) % Lymph % (Auto) 38.5 (20-40) % [place] % (Auto) 9.3 (2-11) % Eos % (Auto) 1.4 (0-4) % Baso % (Auto) 0.5 (0-2) % Lymph # (Auto) 2.8 (1.2-4.9) X10*3/uL [place] # (Auto) 0.7 (0.1-1.2) X10*3/uL Eos # (Auto) 0.1 (0.0-0.4) X10*3/uL Baso # (Auto) 0.0 (0.0-0.2) X10*3/uL Abs Immat Gran (auto) 0.01 (0.00-0.03) X10*3/uL Absolute Neuts (auto) 3.7 (2.0-8.3) x10*3/uL Absolute Nucleated RBC 0.000 (0.0-0.012) X10*3/uL Nucleated RBC % (auto) 0.0 (0.0-0.2) /100WBC Sodium 145 (135-145) mmol/L Potassium 3.9 (3.3-5.1) mmol/L Chloride 105 (96-108) mmol/L Carbon Dioxide 22 (22-29) mmol/L Anion Gap 22 H (12-20) BUN 23 H (9-16) mg/dL Creatinine 1.71 H (0.5-1.4) mg/dL Estim Creat Clear Calc 72.0 Estimated GFR 44 Random Glucose 118 H (60-115) mg/dL Calcium 10.4 H D (8.4-10.2) mg/dL Magnesium 2.0 (1.6-2.6) mg/dL Total Bilirubin 0.6 (0.0-1.0) mg/dL AST 34 (5-37) U/L ALT 44 H (0-40) U/L Alkaline Phosphatase 97 (39-117) U/L Total Protein 8.4 H (6.5-8.0) g/dL Albumin 5.3 H (3.5-5.0) g/dL Urine Color Yellow Urine Appearance Clear Urine pH 7.0 (5.0-9.0) Ur Specific [place] 1.020 (1.005-1.025) Urine Protein Trace (Neg-Trace) mg/dL Urine Glucose (UA) Negative (Negative) mg/dL Urine Ketones Trace (Negative) mg/dL Urine Blood Large (3+) H (Negative) Urine Nitrite Negative (Negative) Ur Leukocyte Esterase Negative (Negative) Urine RBC >20 H (0-2) /HPF Urine WBC 0-5 (0-5) /HPF Ur Squamous Epith Cells 0-2 (0-2) /HPF Urine Bacteria None Seen (None Seen) Hyaline Casts 0-2 (0-2) /LPF Independent Interpretation I performed an independent interpretation of an: CT Scan (No gross obstruction) Radiology Impression Discussion of test interpretation with radiology: I discussed test interpretation with the radiologist and I have reviewed the radiologist's reading. Social Determinants Patient?s care significantly limited by Social Determinants of Health including: Problems related to primary support group Discharge Plan Discharge Clinical Impression: Renal colic, Renal failure Patient Disposition: Home, Self-Care Instructions: Renal Colic (ED) Additional Instructions: Please drink lots of fluids. No NSAIDs. No Motrin no naproxen. These medication can affect your kidney. Prescriptions: New prednisone 20 mg tablet 20 mg PO DAILY Qty: 7 0RF ondansetron 4 mg tablet,disintegrating 4 mg PO TID PRN (Reason: nausea and vomiting) 5 Days Qty: 10 0RF oxycodone 5 mg tablet 5 mg PO Q8H PRN (Reason: pain) Qty: 7 0RF Rx Instructions: Partial Fill upon patient request. No Action All Day Allergy (cetirizine) 10 mg capsule 10 mg PO DAILY Qty: 30 0RF Referrals: Ricci Jolly MD [Physician, Urology] - 03/27/25 Print Language: Guatemalan
--- OUTSIDE RECORDS SUMMARY | 2025-03-25 20:44 | XMS_ITS | Patient Health Record ---
Author Organization [facility] Address [address] [place] [address] Care Team Providers Care Sales Development Coordinator Name Role Phone Argentina, Yeni Primary Care Provider Remedios Mccormick [phone] Allergies Allergen (clinical drug ingredient) Drug/Non Drug Allergy documented on EMR Reaction Allergy Type Onset Date Status codeine Codeine Sulfate vomiting Drug Allergy A ctive Reason For Referral No Information Medications Medication SIG (Take, Route, Fr equency, Duration) Notes Start Date End Date Status Ciclopirox 0.77 % 1 application to aff ected area Externally Twice a day; Duration: 365 days Active Loratadine 10 MG 1 tablet Orally Once a day; Duration: 30 day(s) Active Social History Tobacco Use: [...] W/U Status Risk Notes Problem Tinea unguium (159949550) Tinea unguium (B35.1) Active confirmed [facility]counters En[facility] [address] [facility] Remedios Salmeron Plan Of Treatment Pending Test Test Name Order Date [id number] Plate 03/01/2020 Insurance Providers Payer Name Payer Address Payer Phone Subscriber Number Group Number Insured Name Patient Relationship to Insured Coverage Start Date [facility]age End Date [facility] [address] [place] [address] [id number] Sridhar Mejía Self - patient is the insured Medical (General) History Medical History History ICD Code Chicken pox Multiple sclerosis, right side Surgical History Surgery Date(Month/Year) hemorrhoidectomy 09/2019
--- OUTSIDE RECORDS SUMMARY | 2025-03-25 20:44 | XMS_ITS | Clinical Summary ---
Author Organization [facility] Address [address] [place] [address] Phone Care Team Providers Care Nibbler Operator Name Role Phone Pcp, Not Required Primary Care Provider Unavaila ble Social History Tobacco Use Types Packs/Day Years Used Date Smoking Tobacco: Never Assessed Education Answer Date Recorded Are you interested in more education? Not on jhonatan e 11/08/2022 Are you concerned about learning? Not on file 11/08/2022 No 11/08/2022 No 11/08/2022 Digital Access Answer Date Recorded No 12/09/2022 No 12/09/2022 Reliable internet access at home? Not on file 12/09/2022 Device with a working camera? Not on file Sex and Gender Information Value Date Recorded Sex Assigned at Not on file Legal Sex Male 11:46 AM EDT Gender Identity Not on file Sexual Orientation Not on file Plan of Treatment Health Maintenance Due Date Last Done Comments LIPID PANEL 1982 DEPRESSION SCREENING 1994 SMOKING Hx and SMOKELESS TOB ACCO SCREENING 1995 HEPATITIS C SCREENING 2000 HIV ONE-TIME SCREENING (18-6 5 YEARS) 2000 INFLUENZA VACCINE (#1) 2025 COVID-19 VACCINE ( - 2023-2 5 season) 2025 Adult Td,Tdap Booster 09/17/2031 09/16/2021 HEPATITIS A VACCINES Aged Out No long er eligible based on patient's age to complete this topic HIB VACCINES Aged Out No longer eligi ble based on patient's age to complete this topic MENINGOCOCCAL VACCINES (ACWY) Aged Out No longer eligible based on patient's age to complete this topic MENINGOCOCCAL VACCINES (B) Aged Out N o longer eligible based on patient's age to complete this topic PNEUMOCOCCAL VACCINES (0-49 years) Aged Out No longer eligible based on patient's age to complete this topic Medical Devices Not on file Insurance [facility] PPO EPO [facility] PPO EPO [facility] PPO EPO [facility] PPO EPO Member Subscriber Plan / Payer (Ef fective 2021-Present) Name:Sridhar Roca Relation to Subscriber:Self Name:Sridhar Roca Payer ID:[id number] (NAIC) Type:PPO Address: [address] [place], [place] Member Subscriber Plan / Payer (Ef fective 2021-Present) Name:Sridhar Roca Relation to Subscriber:Self Name:Sridhar Roca Payer ID:[id number] (NAIC) Type:PPO Address: [address] [place], [place] [facility] PPO EPO Member Subscriber Plan / Payer (Ef fective 2021-Present) Name:Sridhar Roca Relation to Subscriber:Self Name:Sridhar Roca Payer ID:[id number] (NAIC) Type:PPO Address: [address] [place], [place] Care Teams Nibbler Operator Relationship Specialty Start Date End Date Pcp, Not Required [address] [place] [address] PCP - General 02/27/21 Additional Source Comments The information contained in this document represents components of the legal health record. It is not the complete legal health record.[facility]
[2025-03-25 20:52] LABS: MANUAL DIFF FLAG NO
[2025-03-25 20:53] VITALS: RESP 20
[2025-03-25 20:53] LABS: Hematocrit 41.5 % (42.0-52.0); Hemoglobin 13.8 g/dl (14.0-18.0); Imm Gran Abs Auto 0.01 X10*3/uL (0.00-0.03); Imm Gran Pct Auto 0.1 % (0.0-0.4); Lymphocytes Absolute Auto 2.8 X10*3/uL (1.2-4.9); Mean Corpuscular HGB Conc 33.3 g/dl (31.0-36.0); Mean Corpuscular Hemoglobin 24.5 pg (27.0-33.0); Mean Corpuscular Volume 73.6 fL (80.0-98.0); NRBC Abs Auto 0.000 X10*3/uL (0.0-0.012); NRBC Pct Auto 0.0 /100WBC (0.0-0.2); Platelet Count 233 X10*3/uL (160-400); Red Blood Count 5.64 X10*6/uL (4.60-5.80); White Blood Count 7.3 X10*3/uL (4.8-10.8)
--- NOTE | 2025-03-25 20:53 | PC.NURSE ---
pt a&ox4, respirations even and unlabored, pt appears diaphoretic. states sudden onset of left sided flank pain radiating into left abdomen. pt unable to lay down or sit due to pain. denies n/v and urogenital symptoms. 18g placed in left ac, labs obtained and pt medicated per sep. pt brought into ed 22 and placed on tele, 70-75bpm
[2025-03-25 21:08] LABS: Alanine Aminotransferase 44 U/L (0-40); Albumin Level 5.3 g/dL (3.5-5.0); Alkaline Phosphatase 97 U/L (39-117); Anion Gap 22 (12-20); Aspartate Amino Transferase 34 U/L (5-37); Blood Urea Nitrogen 23 mg/dL (9-16); Calcium 10.4 mg/dL (8.4-10.2); Carbon Dioxide 22 mmol/L (22-29); Chloride 105 mmol/L (96-108); Creatinine Clr Calc Pharmacy 72.0; Estimated Glomerular Filt Rate 44; Magnesium 2.0 mg/dL (1.6-2.6); Potassium 3.9 mmol/L (3.3-5.1); Sodium 145 mmol/L (135-145); Total Protein 8.4 g/dL (6.5-8.0)
[2025-03-25 21:13] VITALS: BP 152/98; PULSE 77; RESP 20; O2SAT 100
[2025-03-25 22:17] VITALS: BP 116/61; PULSE 74; RESP 18; TEMP 36.6; O2SAT 97
[2025-03-25 23:08] LABS: Appearance Urine Clear; Glucose Urine UA Negative (Negative); PH 7.0 (5.0-9.0); Specific Gravity - Urine 1.020 (1.005-1.025); UMIC TRIGGER UACC YES
[2025-03-26 00:26] VITALS: BP 125/80; PULSE 77; RESP 20; TEMP 37.1; O2SAT 95
== END 2025-03-26 00:27 | disposition home or self-care (01) ==
PROVIDERS: Physician Assistant Medical; Emergency Provider Emergency Medicine Emergency Medical Services
DX: N23 Unspecified renal colic (principal); N19 Unspecified kidney failure; D56.3 Thalassemia minor; Z63.9 Problem related to primary support group, unspecified
CPT/HCPCS: 36415; 74176; 80053; 81001; 83735; 85025; 96361; 96374; 96375; 99285; J1885; J2270; J2405

== ENCOUNTER → 2025-03-25 20:37 | Outpatient (BNV) | payer BC, SELFPAY | PROVIDERS: Emergency Provider Emergency Medicine Emergency Medical Services; Visit Provider Radiology Diagnostic Radiology | DX: N13.2 Hydronephrosis with renal and ureteral calculous obstruction (principal); K59.00 Constipation, unspecified | CPT/HCPCS: 74176 ==